=== PATIENT | female | born 1965 | race African-American/Black ===

== ENCOUNTER 2017-09-16 11:06 | Emergency (ER) | payer MEDICARE, MEDICAID ==
[~2017-09-16] VITALS: Ht 162.6 cm; Wt 73.5 kg
[~2017-09-16 11:06] MED LIST: AMLO5TAB4 PO; METR500T8 PO
--- NOTE | 2017-09-16 11:51 | PHYS DOC ---
Past Medical History Past Medical History: Other Additional Past Medical Histor: sciatica,COLITIS Past Surgical History: Appendectomy, Cholecystectomy, Hysterectomy, Tubal ligation Alcohol Use: Occasionally Drug Use: None Adult General Chief Complaint Chief Complaint: NAUSEA/VOMITING/DIARRHA HPI HPI Patient is a 52 year old female with history of colitis who presents today with nausea vomiting and diarrhea that began 2 days. Patient's also complaining of generalized abdominal pain. Patient denies any hematemesis or melena. Patient is actively vomiting on arrival to the ED. PCP none. She states she just moved here from [place]. Review of Systems Review of Systems Constitutional: Denies fever or chills [] Eyes: Denies change in visual acuity, redness, or eye pain [] HENT: Denies nasal congestion or sore throat [] Respiratory: Denies cough or shortness of breath [] Cardiovascular: No additional information not addressed in HPI [] GI: Generalized abdominal pain, nausea vomiting or diarrhea : Denies dysuria or hematuria [] Musculoskeletal: Denies back pain or joint pain [] Integument: Denies rash or skin lesions [] Neurologic: Denies headache, focal weakness or sensory changes [] All other systems were reviewed and found to be within normal limits, except as documented in this note. Current Medications Current Medications Current Medications Medications (Trade) Dose Ordered Sig/Parisa Start Time Stop Time Status Last Admin Dose Admin Hydromorphone HCl (Dilaudid) 1 mg 1X ONCE 09/16/17 12:00 09/16/17 12:01 DC 09/16/17 11:58 1 MG Iohexol (Omnipaque 300 Mg/ml) 75 ml 1X ONCE 09/16/17 13:15 09/16/17 13:16 DC 09/16/17 13:37 75 ML Promethazine HCl 12.5 mg/Sodium Chloride 50.5 ml @ 101 mls/hr 1X ONCE 09/16/17 12:00 09/16/17 12:29 DC 09/16/17 11:59 101 MLS/HR Sodium Chloride 1,000 ml @ 1,000 mls/hr 1X ONCE 09/16/17 12:00 09/16/17 12:59 DC 09/16/17 11:55 1,000 MLS/HR Allergies Allergies Allergies Coded Allergies Type Severity Reaction Last Updated Verified No Known Drug Allergies 08/29/14 No Physical Exam Physical Exam Constitutional: Well developed, well nourished, no acute distress, non-toxic appearance. [] HENT: Normocephalic, atraumatic, bilateral external ears normal, oropharynx moist, no oral exudates, nose normal. [] Eyes: PERRLA, EOMI, conjunctiva normal, no discharge. [] Neck: Normal range of motion, no tenderness, supple, no stridor. [] Cardiovascular:Heart rate regular rhythm, no murmur [] Lungs & Thorax: Bilateral breath sounds clear to auscultation [] Abdomen: Bowel sounds normal, soft, no tenderness, no masses, no pulsatile masses. [] Skin: Warm, dry, no erythema, no rash. [] Back: No tenderness, no CVA tenderness. [] Extremities: No tenderness, no cyanosis, no clubbing, ROM intact, no edema. [] Neurologic: Alert and oriented X 3, normal motor function, normal sensory function, no focal deficits noted. [] Psychologic: Affect normal, judgement normal, mood normal. [] Current Patient Data Vital Signs Vital Signs Date Time Temp Pulse Resp B/P (MAP) Pulse Ox O2 Delivery O2 Flow Rate FiO2 09/16/17 12:36 76 126/92 (103) 97 Room Air 09/16/17 11:31 98.4 22 98.4 Lab Values Laboratory Tests Test 09/16/17 11:50 09/16/17 12:55 White Blood Count 12.7 x10^3/uL (4.0-11.0) H Red Blood Count 4.83 x10^6/uL (3.50-5.40) Hemoglobin 15.8 g/dL (12.0-15.5) H Hematocrit 47.1 % (36.0-47.0) H Mean Corpuscular Volume 98 fL (79-100) Mean Corpuscular Hemoglobin 33 pg (25-35) Mean Corpuscular Hemoglobin Concent 34 g/dL (31-37) Red Cell Distribution Width 13.1 % (11.5-14.5) Platelet Count 350 x10^3/uL (140-400) Neutrophils (%) (Auto) 74 % (31-73) H Lymphocytes (%) (Auto) 18 % (24-48) L Monocytes (%) (Auto) 7 % (0-9) Eosinophils (%) (Auto) 0 % (0-3) Basophils (%) (Auto) 0 % (0-3) Neutrophils # (Auto) 9.5 x10^3uL (1.8-7.7) H Lymphocytes # (Auto) 2.3 x10^3/uL (1.0-4.8) Monocytes # (Auto) 0.9 x10^3/uL (0.0-1.1) Eosinophils # (Auto) 0.0 x10^3/uL (0.0-0.7) Basophils # (Auto) 0.0 x10^3/uL (0.0-0.2) Prothrombin Time 12.6 SEC (11.7-14.0) Prothrombin Time INR 1.0 (0.8-1.1) PTT 26 SEC (24-38) Sodium Level 142 mmol/L (136-145) Potassium Level 3.6 mmol/L (3.5-5.1) Chloride Level 101 mmol/L (98-107) Carbon Dioxide Level 26 mmol/L (21-32) Anion Gap 15 (6-14) H Blood Urea Nitrogen 11 mg/dL (7-20) Creatinine 1.0 mg/dL (0.6-1.0) Estimated GFR (Cockcroft-Gault) 70.5 BUN/Creatinine Ratio 11 (6-20) Glucose Level 150 mg/dL (70-99) H Calcium Level 9.4 mg/dL (8.5-10.1) Total Bilirubin 0.6 mg/dL (0.2-1.0) Aspartate Amino Transferase (AST) 22 U/L (15-37) Alanine Aminotransferase (ALT) 19 U/L (14-59) Alkaline Phosphatase 110 U/L (46-116) Total Protein 8.9 g/dL (6.4-8.2) H Albumin 4.7 g/dL (3.4-5.0) Albumin/Globulin Ratio 1.1 (1.0-1.7) Lipase 275 U/L (73-393) Ethyl Alcohol Level < 10 mg/dL (0-10) Urine Collection Type Unknown Urine Color Yellow Urine Clarity Hazy Urine pH 5.5 Urine Specific [place] 1.025 Urine Protein 30 mg/dL (NEG-TRACE) Urine Glucose (UA) Negative mg/dL (NEG) Urine Ketones (Stick) Trace mg/dL (NEG) Urine Blood Negative (NEG) Urine Nitrite Negative (NEG) Urine Bilirubin Small (NEG) Urine Urobilinogen Dipstick 0.2 mg/dL (0.2 mg/dL) Urine Leukocyte Esterase Negative (NEG) Urine RBC 0 /HPF (0-2) Urine WBC 1-4 /HPF (0-4) Urine Squamous Epithelial Cells Many /LPF Urine Bacteria Many /HPF (0-FEW) Urine Hyaline Casts Many /HPF Urine Mucus Marked /LPF Urine Opiates Screen Pos (NEG) Urine Methadone Screen Neg (NEG) Urine Barbiturates Neg (NEG) Urine Phencyclidine Screen Neg (NEG) Urine Amphetamine/Methamphetamine Neg (NEG) Urine Benzodiazepines Screen Neg (NEG) Urine Cocaine Screen Pos (NEG) Urine Cannabinoids Screen Pos (NEG) Urine Ethyl Alcohol Neg (NEG) Laboratory Tests 09/16/17 11:50 Laboratory Tests 09/16/17 11:50 EKG EKG [] Radiology/Procedures Radiology/Procedures []PROCEDURE: CT ABD PELV W/ IV CONTRST ONLY CT abdomen and pelvis with contrast 09/16/2017 Clinical indication: Nausea, vomiting and diarrhea. History of colitis. Technique: Multiple CT images of the abdomen and pelvis were obtained following the intravenous and ministration of 75 mL Omnipaque 300. PQRS Compliance Statement: One or more of the following individualized dose reduction techniques were utilized for this examination: 1. Automated exposure control 2. Adjustment of the mA and/or kV according to patient size 3. Use of iterative reconstruction technique Findings: Heart size is normal. Visualized lung bases are clear. Liver, adrenal glands, spleen, pancreas, and kidneys are unremarkable. Abdominal aorta is normal in caliber with mild aortoiliac calcified atheromatous disease. No retroperitoneal or mesenteric lymphadenopathy. No abdominal free fluid. The small and large bowel loops are normal in caliber without obstruction. There is possible circumferential thickening of the sigmoid colon, though not well distended. Prior cholecystectomy. Prior appendectomy. No abdominal free fluid. No pneumoperitoneum. Urinary bladder is decompressed. Prior hysterectomy. There is a small fat-containing periumbilical hernia. There are no destructive osseous lesions. Impression: Possible mild circumferential thickening of the sigmoid colon, however limited due to lack of oral contrast. Findings may be pseudothickening from incomplete distention, though nonspecific infectious, inflammatory or ischemic colitis could produce a similar appearance. DICTATED and SIGNED BY: JOSE ANTONIO OTERO MD DATE: 09/16/17 1402 CC: NITA ADAMS APRN; NO PCP ~ Course & Med Decision Making Course & Med Decision Making Pertinent Labs and Imaging studies reviewed. (See chart for details) This is a 52-year-old female patient in the ED for nausea vomiting and diarrhea for 2 days. She has history of colitis. Blood pressure was 223/133 on arrival to the ED with a heart rate of 90. Patient states she does not have history of hypertension but any time she has severe pain like she does right now her blood pressure goes way up. CBC with a WBC of 12.7, CMP would not acute findings, CT of the abdomen and pelvic was noted for colitis. Patient was discharged with Flagyl and Cipro. She was ready has pain medicines at home. She was discharged with promethazine for nausea vomiting and follow-up with her PCP in 1-2 weeks. Her blood pressure came down to 126/92. She states she is feeling better. Dragon Disclaimer Dragon Disclaimer This electronic medical record was generated, in whole or in part, using a voice recognition dictation system. Departure Departure Impression: Primary Impression: Acute colitis Disposition: 01 HOME, SELF-CARE Condition: STABLE Referrals: NO PCP (PCP) SKYLA RASMUSSEN MD follow up in 1-3 days Patient Instructions: Colitis Additional Instructions: You were seen for colitis. Please push fluids. Take the prescribed antibiotics as ordered. Maintain good hand hygiene. Follow-up with your doctor for next 1-3 days. Come back to the ED at any point symptoms worsen. Scripts Metronidazole (FLAGYL) 500 Mg Tablet 500 MG PO TID, #30 TAB Prov: NITA ADAMS APRN 09/16/17 Ciprofloxacin Hcl (CIPRO) 500 Mg Tablet 1 TAB PO BID, #20 TAB Prov: NITA ADAMS APRN 09/16/17 Ondansetron (ZOFRAN ODT) 4 Mg Tab.rapdis 1 TAB SL Q8HRS, #15 TAB Prov: NITA ADAMS APRN 09/16/17 Promethazine Hcl (PROMETHAZINE HCL) 25 Mg Tablet 1 TAB PO PRN Q6HRS, #10 TAB Prov: NITA ADAMS APRN 09/16/17 NITA ADAMS APRN Sep 16, 2017 11:51
[2017-09-16] MEDS ORDERED: IV NORMAL SALINE 1000ML BAG 1,000 ML IV ONE (12:00)
[2017-09-16] MEDS ORDERED: PROMETHAZINE 12.5 MG in IV NORMAL SALINE 50ML 50 ML IV ONE (12:00)
[2017-09-16] MEDS ORDERED: HYDROmorphone 2 MG/ML VIAL IV ONE (12:00)
[2017-09-16 12:06] LABS: BASO % 0 % (0-3); EOS % 0 % (0-3); HEMATOCRIT 47.1 % (36.0-47.0); HEMOGLOBIN 15.8 g/dL (12.0-15.5); LYMPH # 2.3 x10^3/uL (1.0-4.8); LYMPH % 18 % (24-48); MEAN CORPUSCULAR HEMOGLOBIN 33 pg (25-35); MEAN CORPUSCULAR HGB CONC 34 g/dL (31-37); MEAN CORPUSCULAR VOLUME 98 fL (79-100); MONO % 7 % (0-9); NEUT % 74 % (31-73); PLATELET COUNT 350 x10^3/uL (140-400); RED BLOOD COUNT 4.83 x10^6/uL (3.50-5.40); RED CELL DISTRIBUTION WIDTH 13.1 % (11.5-14.5); WHITE BLOOD COUNT 12.7 x10^3/uL (4.0-11.0)
[2017-09-16 12:14] LABS: PROTHROMBIN TIME PATIENT 12.6 SEC (11.7-14.0)
[2017-09-16 12:20] LABS: CALCIUM 9.4 mg/dL (8.5-10.1); GFR 70.5; POTASSIUM 3.6 mmol/L (3.5-5.1)
[2017-09-16 12:25] LABS: ALBUMIN 4.7 g/dL (3.4-5.0); ALBUMIN/GLOBULIN RATIO 1.1 (1.0-1.7); TOTAL BILIRUBIN 0.6 mg/dL (0.2-1.0); TOTAL PROTEIN 8.9 g/dL (6.4-8.2)
[2017-09-16 12:36] VITALS: BP 126/92
[2017-09-16 13:09] LABS: BILIRUBIN,URINE SMALL (NEG); GLUCOSE,URINE NEGATIVE (NEG); NITRITE,URINE NEGATIVE (NEG); PH,URINE 5.5; PROTEIN,URINE 30 mg/dL (NEG-TRACE); UROBILINOGEN,URINE 0.2 mg/dL (0.2 mg/dL)
[2017-09-16 13:13] LABS: BARBITURATES NEG (NEG); BENZODIAZEPINES NEG (NEG); CANNABINOIDS POS (NEG); COCAINE POS (NEG); METHADONE NEG (NEG); OPIATES POS (NEG); PHENCYCLIDINE NEG (NEG)
[2017-09-16] MEDS ORDERED: IOHEXOL 300 MG/ML 100ML VIAL. IV ONE (13:15)
[2017-09-16 13:16] LABS: SQUAMOUS EPITHELIAL CELL,UR MANY /LPF
[2017-09-16 13:17] LABS: BACTERIA,URINE MANY /HPF (0-FEW)
[2017-09-16 13:18] LABS: RBC,URINE 0 /HPF (0-2)
--- NOTE | 2017-09-16 14:11 | RAD ---
CT abdomen and pelvis with contrast 09/16/2017 Clinical indication: Nausea, vomiting and diarrhea. History of colitis. Technique: Multiple CT images of the abdomen and pelvis were obtained following the intravenous and ministration of 75 mL Omnipaque 300. PQRS Compliance Statement: One or more of the following individualized dose reduction techniques were utilized for this examination: 1. Automated exposure control 2. Adjustment of the mA and/or kV according to patient size 3. Use of iterative reconstruction technique Findings: Heart size is normal. Visualized lung bases are clear. Liver, adrenal glands, spleen, pancreas, and kidneys are unremarkable. Abdominal aorta is normal in caliber with mild aortoiliac calcified atheromatous disease. No retroperitoneal or mesenteric lymphadenopathy. No abdominal free fluid. The small and large bowel loops are normal in caliber without obstruction. There is possible circumferential thickening of the sigmoid colon, though not well distended. Prior cholecystectomy. Prior appendectomy. No abdominal free fluid. No pneumoperitoneum. Urinary bladder is decompressed. Prior hysterectomy. There is a small fat-containing periumbilical hernia. There are no destructive osseous lesions. Impression: Possible mild circumferential thickening of the sigmoid colon, however limited due to lack of oral contrast. Findings may be pseudothickening from incomplete distention, though nonspecific infectious, inflammatory or ischemic colitis could produce a similar appearance.
[2017-09-16] MEDS ORDERED: ONDA4TAB10 SL (15:07)
[2017-09-16] MEDS ORDERED: CIPR500T94 PO (15:07)
[2017-09-16] MEDS ORDERED: METR500T PO (15:07)
[2017-09-16] MEDS ORDERED: PROM25TA10 PO (15:07)
== END 2017-09-16 15:17 | disposition home or self-care (01) ==
LOC: ER 11:06
DX: K52.9 Noninfective gastroenteritis and colitis, unspecified (principal); Z98.51 Tubal ligation status; Z90.49 Acquired absence of other specified parts of digestive tract; Z90.710 Acquired absence of both cervix and uterus
CPT/HCPCS: 36415; 74177; 80053; 80307; 81001; 83690; 85025; 85610; 85730; 87045; 87086; 96365; 96375; 99285; G0480; J1170; J2550; J7030; Q9967; G0479

== ENCOUNTER 2017-11-08 22:34 | Emergency (ER) | payer MEDICARE, MEDICAID ==
[2017-11-08 23:07] LABS: ADD MAN DIFF? NO
[2017-11-08 23:10] LABS: BASO % 0 % (0-3); EOS # 0.1 x10^3/uL (0.0-0.7); EOS % 1 % (0-3); HEMATOCRIT 39.9 % (36.0-47.0); HEMOGLOBIN 13.8 g/dL (12.0-15.5); LYMPH # 3.8 x10^3/uL (1.0-4.8); LYMPH % 34 % (24-48); MEAN CORPUSCULAR HEMOGLOBIN 32 pg (25-35); MEAN CORPUSCULAR HGB CONC 35 g/dL (31-37); MEAN CORPUSCULAR VOLUME 93 fL (79-100); MONO # 0.6 x10^3/uL (0.0-1.1); MONO % 5 % (0-9); NEUT # 6.5 x10^3uL (1.8-7.7); NEUT % 59 % (31-73); PLATELET COUNT 320 x10^3/uL (140-400); RED BLOOD COUNT 4.29 x10^6/uL (3.50-5.40); RED CELL DISTRIBUTION WIDTH 12.9 % (11.5-14.5)
[2017-11-08 23:12] LABS: BILIRUBIN,URINE NEGATIVE (NEG); CLARITY,URINE CLEAR; COLOR,URINE YELLOW; GLUCOSE,URINE NEGATIVE (NEG); NITRITE,URINE NEGATIVE (NEG); PH,URINE 5.5; PROTEIN,URINE NEGATIVE (NEG-TRACE); UROBILINOGEN,URINE 0.2 mg/dL (0.2 mg/dL)
[2017-11-08 23:16] LABS: ANION GAP 12 (6-14); BLOOD UREA NITROGEN 14 mg/dL (7-20); BUN/CREATININE RATIO 18 (6-20); CALCIUM 8.9 mg/dL (8.5-10.1); CARBON DIOXIDE 26 mmol/L (21-32); CHLORIDE 101 mmol/L (98-107); CREATININE 0.8 mg/dL (0.6-1.0); GFR 91.1; GLUCOSE 73 mg/dL (70-99); POTASSIUM 3.7 mmol/L (3.5-5.1); SODIUM 139 mmol/L (136-145)
[2017-11-08 23:18] LABS: BACTERIA,URINE FEW /HPF (0-FEW); RBC,URINE 0 /HPF (0-2); SQUAMOUS EPITHELIAL CELL,UR MOD /LPF; WBC,URINE OCC /HPF (0-4)
[2017-11-08 23:25] LABS: ALBUMIN 4.2 g/dL (3.4-5.0); ALBUMIN/GLOBULIN RATIO 1.2 (1.0-1.7); ALK PHOS 79 U/L (46-116); ALT (SGPT) 20 U/L (14-59); AST (SGOT) 23 U/L (15-37); LIPASE 405 U/L (73-393); TOTAL BILIRUBIN 0.2 mg/dL (0.2-1.0); TOTAL PROTEIN 7.7 g/dL (6.4-8.2)
[2017-11-08] MEDS: ONDANSETRON PF 4 MG/2 ML VIAL. IV ×2 (23:30)
[2017-11-08] MEDS: IV NORMAL SALINE 1000ML BAG 1,000 ML IV ×2 (23:30)
[2017-11-08] MEDS: KETOROLAC 30 MG/ML INJ. IV ×2 (23:31)
[2017-11-08] MEDS: IOHEXOL 300 MG/ML 100ML VIAL. IV ×2 (23:54)
[2017-11-09] MEDS ORDERED: CONTRAST GIVEN MC ×2
== END 2017-11-09 00:35 | disposition left against medical advice (07) ==
LOC: ER 11-09 00:35
DX: K52.9 Noninfective gastroenteritis and colitis, unspecified (principal); M54.30 Sciatica, unspecified side; Z90.49 Acquired absence of other specified parts of digestive tract; Z90.710 Acquired absence of both cervix and uterus; Z98.51 Tubal ligation status
CPT/HCPCS: 36415; 74177; 80053; 81001; 83690; 85025; 96361; 96374; 96375; 99285-25; J1885; J2405; J7030; Q9967

== ENCOUNTER 2017-11-25 09:28 | Inpatient (IN) | payer MEDICARE ==
[2017-11-25 10:27] LABS: ADD MAN DIFF? NO
[2017-11-25 10:34] LABS: BASO # 0.1 x10^3/uL (0.0-0.2); BASO % 1 % (0-3); EOS % 0 % (0-3); HEMATOCRIT 45.2 % (36.0-47.0); HEMOGLOBIN 15.3 g/dL (12.0-15.5); LYMPH # 2.5 x10^3/uL (1.0-4.8); LYMPH % 18 % (24-48); MEAN CORPUSCULAR HEMOGLOBIN 32 pg (25-35); MEAN CORPUSCULAR HGB CONC 34 g/dL (31-37); MEAN CORPUSCULAR VOLUME 94 fL (79-100); MONO # 0.3 x10^3/uL (0.0-1.1); MONO % 3 % (0-9); NEUT # 10.9 x10^3uL (1.8-7.7); NEUT % 79 % (31-73); PLATELET COUNT 401 x10^3/uL (140-400); RED BLOOD COUNT 4.79 x10^6/uL (3.50-5.40); RED CELL DISTRIBUTION WIDTH 14.2 % (11.5-14.5); WHITE BLOOD COUNT 13.9 x10^3/uL (4.0-11.0)
[2017-11-25 10:41] LABS: ANION GAP 20 (6-14); BLOOD UREA NITROGEN 9 mg/dL (7-20); BUN/CREATININE RATIO 9 (6-20); CALCIUM 9.7 mg/dL (8.5-10.1); CARBON DIOXIDE 20 mmol/L (21-32); CHLORIDE 103 mmol/L (98-107); GFR 70.5; GLUCOSE 120 mg/dL (70-99); POTASSIUM 3.6 mmol/L (3.5-5.1); SODIUM 143 mmol/L (136-145)
[2017-11-25 10:47] LABS: ALBUMIN 4.4 g/dL (3.4-5.0); ALK PHOS 106 U/L (46-116); ALT (SGPT) 27 U/L (14-59); AST (SGOT) 44 U/L (15-37); LIPASE 176 U/L (73-393); TOTAL BILIRUBIN 0.3 mg/dL (0.2-1.0); TOTAL PROTEIN 8.7 g/dL (6.4-8.2)
[2017-11-25 10:50] LABS: TROPONINI < 0.017 ng/mL (0.000-0.055)
[2017-11-25] MEDS: IV NORMAL SALINE 1000ML BAG 1,000 ML IV ×2 (10:58→17:58)
[2017-11-25] MEDS: ONDANSETRON PF 4 MG/2 ML VIAL. IV ×4 (11:00→18:17)
[2017-11-25] MEDS: fentaNYL PF VIAL 100 MCG/2 ML VIAL IV (11:02)
[2017-11-25] MEDS: FAMOTIDINE 20 MG/2 ML VIAL IVP (11:03)
[2017-11-25] MEDS: MORPHINE SULFATE 4 MG/ML DISP.SYRIN. IV ×4 (13:15→20:56)
[2017-11-25] MEDS ORDERED: CONTRAST GIVEN MC (14:00)
[2017-11-25] MEDS: IOHEXOL 300 MG/ML 100ML VIAL. IV (15:09)
[2017-11-25 16:22] LABS: LACTIC ACID 3.4 mmol/L (0.4-2.0)
[2017-11-25] MEDS ORDERED: MORPHINE SULFATE 2 MG/ML DISP.SYRIN. IV (17:15)
[2017-11-25] MEDS: CIPROFLOXACIN 400MG PREMIX 200 ML IV (17:18)
[2017-11-25] MEDS: ENALAPRILAT 2.5 MG/2 ML VIAL. IV ×2 (18:18→20:56)
[2017-11-26] MEDS: IV NORMAL SALINE 1000ML BAG 1,000 ML IV ×2 (05:36→16:03)
[2017-11-26] MEDS: MORPHINE SULFATE 4 MG/ML DISP.SYRIN. IV ×4 (05:37→22:25)
[2017-11-26 07:17] LABS: ADD MAN DIFF? NO
[2017-11-26 07:20] LABS: BASO # 0.1 x10^3/uL (0.0-0.2); BASO % 1 % (0-3); EOS % 0 % (0-3); HEMATOCRIT 42.9 % (36.0-47.0); HEMOGLOBIN 14.4 g/dL (12.0-15.5); LYMPH # 2.4 x10^3/uL (1.0-4.8); LYMPH % 16 % (24-48); MEAN CORPUSCULAR HEMOGLOBIN 32 pg (25-35); MEAN CORPUSCULAR HGB CONC 34 g/dL (31-37); MEAN CORPUSCULAR VOLUME 95 fL (79-100); MONO # 1.3 x10^3/uL (0.0-1.1); MONO % 9 % (0-9); NEUT # 11.1 x10^3uL (1.8-7.7); NEUT % 75 % (31-73); PLATELET COUNT 360 x10^3/uL (140-400); RED BLOOD COUNT 4.53 x10^6/uL (3.50-5.40); RED CELL DISTRIBUTION WIDTH 14.1 % (11.5-14.5); WHITE BLOOD COUNT 14.9 x10^3/uL (4.0-11.0)
[2017-11-26 07:42] LABS: ANION GAP 9 (6-14); BLOOD UREA NITROGEN 11 mg/dL (7-20); CALCIUM 8.7 mg/dL (8.5-10.1); CARBON DIOXIDE 27 mmol/L (21-32); CHLORIDE 104 mmol/L (98-107); GFR 70.5; GLUCOSE 95 mg/dL (70-99); POTASSIUM 4.5 mmol/L (3.5-5.1); SODIUM 140 mmol/L (136-145)
[2017-11-26 09:43] LABS: LACTIC ACID 1.6 mmol/L (0.4-2.0)
[2017-11-26] MEDS: metroNIDAZOLE 250 MG TABLET PO ×2 (12:44→20:52)
[2017-11-26] MEDS: FAMOTIDINE 20 MG TABLET. PO ×2 (12:44→20:52)
[2017-11-26 13:45] LABS: BARBITURATES NEG (NEG); BENZODIAZEPINES NEG (NEG); CANNABINOIDS POS (NEG); COCAINE POS (NEG); METHADONE NEG (NEG); OPIATES POS (NEG); PHENCYCLIDINE NEG (NEG)
[2017-11-26 13:47] LABS: AMPHETAMINE/METHAMPHETAMINE NEG (NEG); ETHANOL, URINE NEG (NEG)
[2017-11-26] MEDS: ENOXAPARIN 40 MG/0.4 ML SYRINGE. SQ (16:00)
[2017-11-26] MEDS: LACTOBACILLUS RHAMNOSUS GG 1 CAPSULE. PO (20:51)
[2017-11-27 03:59] LABS: ADD MAN DIFF? NO
[2017-11-27 04:01] LABS: BASO # 0.1 x10^3/uL (0.0-0.2); BASO % 1 % (0-3); EOS # 0.1 x10^3/uL (0.0-0.7); EOS % 1 % (0-3); HEMATOCRIT 40.5 % (36.0-47.0); LYMPH # 3.7 x10^3/uL (1.0-4.8); LYMPH % 42 % (24-48); MEAN CORPUSCULAR HEMOGLOBIN 33 pg (25-35); MEAN CORPUSCULAR HGB CONC 35 g/dL (31-37); MEAN CORPUSCULAR VOLUME 94 fL (79-100); MONO # 0.7 x10^3/uL (0.0-1.1); MONO % 8 % (0-9); NEUT # 4.4 x10^3uL (1.8-7.7); NEUT % 49 % (31-73); PLATELET COUNT 301 x10^3/uL (140-400); WHITE BLOOD COUNT 8.9 x10^3/uL (4.0-11.0)
[2017-11-27 04:19] LABS: ANION GAP 8 (6-14); BLOOD UREA NITROGEN 8 mg/dL (7-20); CALCIUM 9.1 mg/dL (8.5-10.1); CARBON DIOXIDE 24 mmol/L (21-32); CHLORIDE 107 mmol/L (98-107); GFR 70.5; GLUCOSE 98 mg/dL (70-99); POTASSIUM 3.3 mmol/L (3.5-5.1); SODIUM 139 mmol/L (136-145)
[2017-11-27] MEDS: metroNIDAZOLE 250 MG TABLET PO ×2 (05:40→14:00)
[2017-11-27] MEDS: BARIUM SULFATE 340 GM SUSPENSION. PO (08:35)
[2017-11-27] MEDS: SIMETHICONE/SOD BICARB/CITRIC ACID PACKET. PO (08:35)
[2017-11-27] MEDS: BARIUM SULFATE 60% 355 ML SUSP PO (08:35)
[2017-11-27] MEDS: FAMOTIDINE 20 MG TABLET. PO (11:28)
[2017-11-27] MEDS: LACTOBACILLUS RHAMNOSUS GG 1 CAPSULE. PO (11:28)
[2017-11-27] MEDS: MORPHINE SULFATE 4 MG/ML DISP.SYRIN. IV ×2 (11:32→15:37)
[2017-11-27] MEDS ORDERED: INFLUENZA VAX SCREEN BY RX. MC (14:00)
[2017-11-27] MEDS: FLU VACC QS2017-18 (36MOS+)/PF 0.5 ML SYRINGE. VAX IM (15:22)
[2017-11-27] MEDS: ONDANSETRON PF 4 MG/2 ML VIAL. IV (15:31)
[2017-11-28 09:22] LABS: C DIFF BY PCR Positive (Negative)
== END 2017-11-27 16:10 | disposition home or self-care (01) | DRG 872 ==
LOC: ER 09:28 → 6 SOUTH 16:31
DX: A41.9 Sepsis, unspecified organism (principal); E87.2 Acidosis; A09 Infectious gastroenteritis and colitis, unspecified; B19.20 Unspecified viral hepatitis C without hepatic coma; Z90.710 Acquired absence of both cervix and uterus; F17.210 Nicotine dependence, cigarettes, uncomplicated; F32.9 Major depressive disorder, single episode, unspecified; F41.9 Anxiety disorder, unspecified; K29.70 Gastritis, unspecified, without bleeding; F12.90 Cannabis use, unspecified, uncomplicated; K63.5 Polyp of colon; Z83.3 Family history of diabetes mellitus; Z90.49 Acquired absence of other specified parts of digestive tract; Z98.51 Tubal ligation status
CPT/HCPCS: 36415; 74177; 74249; 80048; 80053; 80307; 83605; 83690; 84484; 85025; 87324; 90686; 93005; 96361; 96374; 96375; 96376; 99285; 99285-25; J0744; J1650; J2270; J2405; J3010; J3490; J7030; Q9967; S0028

== ENCOUNTER → 2018-01-22 | Day surgery (SDC) | payer MEDICARE, OTHER ==
[~2018-01-22] MED LIST changes: -AMLO5TAB4 PO; +LIDOCAINE 1% PF 2 ML VIAL. ID; +LIDOCAINE 2% PF Vial for OR 5 ML VIAL.; -METR500T8 PO; +MORPHINE SULFATE 4 MG/ML DISP.SYRIN. IV; +ONDANSETRON PF 4 MG/2 ML VIAL. IV; +PROCHLORPERAZINE 10 MG/2 ML VIAL. IV; +PROPOFOL 20 ML IV; +fentaNYL PF VIAL 100 MCG/2 ML VIAL IV
[2018-01-22] MEDS: IV RINGERS,LACTATED 1000ML 1,000 ML IV (07:00)
== END | disposition home or self-care (01) ==
LOC: ENDOS 15:19
DX: K29.50 Unspecified chronic gastritis without bleeding (principal)
CPT/HCPCS: 43235; J2704

== ENCOUNTER 2018-05-24 21:00 | Emergency (ER) | payer MEDICARE, OTHER ==
[~2018-05-24] VITALS: Ht 162.6 cm; Wt 77.1 kg
[2018-05-24 21:00] VITALS: BP 128/85
[~2018-05-24 21:00] MED LIST changes: +AMLO5TAB4 PO; +CIPR500T94 PO; -LIDOCAINE 1% PF 2 ML VIAL. ID; -LIDOCAINE 2% PF Vial for OR 5 ML VIAL.; +METR500T PO; +METR500T8 PO; -MORPHINE SULFATE 4 MG/ML DISP.SYRIN. IV; +ONDA4TAB10 SL; -ONDANSETRON PF 4 MG/2 ML VIAL. IV; -PROCHLORPERAZINE 10 MG/2 ML VIAL. IV; +PROM25TA10 PO; -PROPOFOL 20 ML IV; -fentaNYL PF VIAL 100 MCG/2 ML VIAL IV
--- NOTE | 2018-05-24 21:59 | PHYS DOC ---
Past Medical History Past Medical History: Other Additional Past Medical Histor: colitis Past Surgical History: Appendectomy, Cholecystectomy, Hysterectomy, Tubal ligation Alcohol Use: Occasionally Drug Use: Marijuana Adult General Chief Complaint Chief Complaint: LOWER EXT PAIN HPI HPI Patient is a 52 year old female with no significant medical history who presents today complaining of a knot on the left lateral knee that she noted today. Patient states this note is painful. Denies any known injury. Review of Systems Review of Systems Constitutional: Denies fever or chills [] Eyes: Denies change in visual acuity, redness, or eye pain [] HENT: Denies nasal congestion or sore throat [] Respiratory: Denies cough or shortness of breath [] Cardiovascular: No additional information not addressed in HPI [] GI: Denies abdominal pain, nausea, vomiting, bloody stools or diarrhea [] : Denies dysuria or hematuria [] Musculoskeletal:Reports knot on the left lateral knee Denies back pain or joint pain [] Integument: Denies rash or skin lesions [] Neurologic: Denies headache, focal weakness or sensory changes [] All other systems were reviewed and found to be within normal limits, except as documented in this note. Allergies Allergies Allergies Coded Allergies Type Severity Reaction Last Updated Verified No Known Drug Allergies 08/29/14 No Physical Exam Physical Exam Constitutional: Well developed, well nourished, no acute distress, non-toxic appearance. [] HENT: Normocephalic, atraumatic, bilateral external ears normal, oropharynx moist, no oral exudates, nose normal. [] Eyes: PERRLA, EOMI, conjunctiva normal, no discharge. [] Neck: Normal range of motion, no tenderness, supple, no stridor. [] Cardiovascular:Heart rate regular rhythm, no murmur [] Lungs & Thorax: Bilateral breath sounds clear to auscultation [] Abdomen: Bowel sounds normal, soft, no tenderness, no masses, no pulsatile masses. [] Skin: Warm, dry, no erythema, no rash. [] Back: No tenderness, no CVA tenderness. [] Extremities: Left lateral knee with a knot approximately 1 x 1 centimeters with no erythema, slight tenderness over the area, multiple varicose veins noted to bilateral lower extremities no cyanosis, no clubbing, ROM intact, no edema. Negative bilateral Homans sign. +2 bilateral pedal pulses. Neurologic: Alert and oriented X 3, normal motor function, normal sensory function, no focal deficits noted. [] Psychologic: Affect normal, judgement normal, mood normal. [] Current Patient Data Vital Signs Vital Signs Date Time Temp Pulse Resp B/P (MAP) Pulse Ox O2 Delivery O2 Flow Rate FiO2 05/24/18 21:00 98.5 84 16 128/85 (99) 98 Room Air 98.5 EKG EKG [] Radiology/Procedures Radiology/Procedures [] Course & Med Decision Making Course & Med Decision Making Pertinent Labs and Imaging studies reviewed. (See chart for details) This is a 52-year-old female patient presenting to the ED today with complaints of a knot on her left lateral knee that she noted today. Left knee x-rays interpreted by radiologist are negative for any acute findings. Venous Doppler to the left lower extremity is negative for any acute findings-noted for varicose veins. Patient was discharged on aspirin as needed for pain. Recommended mickey horse. Follow-up with PCP next week. Dragon Disclaimer Dragon Disclaimer This electronic medical record was generated, in whole or in part, using a voice recognition dictation system. Departure Departure Impression: Primary Impression: Varicose veins of lower extremity Disposition: HOME, SELF-CARE Condition: STABLE Referrals: NO PCP (PCP) Follow-up with your own doctor in 1-2 weeks Patient Instructions: Varicose Veins Additional Instructions: You were evaluated in the emergency room and noted to have varicose veins. We highly recommend you wear mickey horse. Take aspirin as needed for pain. Prescription was given to you. Follow-up with your doctor next week. Scripts Aspirin (ASPIRIN) 325 Mg Tablet 1 TAB PO BID PRN for PAIN, #30 TAB 0 Refills Prov: NITA ADAMS YOSHI 05/24/18 Problem Qualifiers Primary Impression: Varicose veins of lower extremity Varicose vein complication: unspecified Laterality: bilateral Qualified Codes: I83.93 - Asymptomatic varicose veins of bilateral lower extremities ANGIENITA YOSHI May 24, 2018 21:59
--- NOTE | 2018-05-24 22:36 | RAD ---
Indication:swelling and pain on lateral epicondyle TECHNIQUE: 4 views of the left knee COMPARISON:None FINDINGS: No acute fracture or dislocation. No joint effusion. No joint space narrowing or productive changes. IMPRESSION: No acute findings. Electronically signed by: Brian Brantley DO (05/24/2018 10:33 PM) [facility]
[2018-05-24] MEDS ORDERED: ASPI325T8 PO (22:53)
--- NOTE | 2018-05-24 23:02 | RAD ---
Ultrasound venous Doppler INDICATION:Painful lump lateral knee. TECHNIQUE: Grayscale, color Doppler and spectral waveform ultrasound images of the left lower extremity deep veins obtained. COMPARISON: None FINDINGS: The interrogated deep veins are compressible and demonstrate evidence of blood flow with normal respiratory variation and response to augmentation. In the left lateral in the area of palpable abnormality there is no solid or cystic lesion. Diffuse edema is seen in this region. IMPRESSION: 1. No sonographic evidence of acute DVT of the left lower extremity deep veins. 2. No solid or cystic lesion seen in the region of palpable abnormality. Electronically signed by: Brian Brantley DO (05/24/2018 10:59 PM) [facility]
== END 2018-05-24 23:14 | disposition home or self-care (01) ==
LOC: ER 21:00
DX: I83.93 Asymptomatic varicose veins of bilateral lower extremities (principal)
CPT/HCPCS: 73564; 93971; 99284-25

== ENCOUNTER 2018-06-03 17:27 | Inpatient (IN) | payer OTHER ==
[~2018-06-03] VITALS: Ht 165.1 cm; Wt 66.3 kg
[~2018-06-03 17:27] MED LIST changes: +ASPI325T8 PO
[2018-06-03] MEDS ORDERED: IV NORMAL SALINE 1000ML BAG 1,000 ML IV ONE (17:45)
[2018-06-03 18:05] LABS: BASO % 0 % (0-3); EOS # 0.1 x10^3/uL (0.0-0.7); EOS % 1 % (0-3); HEMATOCRIT 42.3 % (36.0-47.0); HEMOGLOBIN 14.8 g/dL (12.0-15.5); LYMPH # 3.3 x10^3/uL (1.0-4.8); LYMPH % 37 % (24-48); MEAN CORPUSCULAR HEMOGLOBIN 33 pg (25-35); MEAN CORPUSCULAR HGB CONC 35 g/dL (31-37); MEAN CORPUSCULAR VOLUME 95 fL (79-100); MONO # 0.7 x10^3/uL (0.0-1.1); MONO % 8 % (0-9); NEUT # 4.9 x10^3uL (1.8-7.7); NEUT % 54 % (31-73); PLATELET COUNT 287 x10^3/uL (140-400); RED BLOOD COUNT 4.45 x10^6/uL (3.50-5.40); RED CELL DISTRIBUTION WIDTH 14.4 % (11.5-14.5); WHITE BLOOD COUNT 9.1 x10^3/uL (4.0-11.0)
[2018-06-03 18:13] LABS: PROTHROMBIN TIME PATIENT 13.3 SEC (11.7-14.0)
[2018-06-03 18:17] LABS: CALCIUM 9.5 mg/dL (8.5-10.1); GFR 70.5
[2018-06-03 18:23] LABS: ALBUMIN 4.7 g/dL (3.4-5.0); ALBUMIN/GLOBULIN RATIO 1.4 (1.0-1.7); MAGNESIUM 2.1 mg/dL (1.8-2.4); TOTAL BILIRUBIN 0.8 mg/dL (0.2-1.0)
[2018-06-03] MEDS ORDERED: POTASSIUM CHLORIDE 20 MEQ TABLET.ER. PO ONE (18:45)
[2018-06-03] MEDS ORDERED: IV NORMAL SALINE 500ML BAG 500 ML IV ONE (19:15)
[2018-06-03] MEDS ORDERED: ONDANSETRON PF 4 MG/2 ML VIAL. IV ONE (19:15)
--- NOTE | 2018-06-03 19:48 | PHYS DOC ---
Past Medical History Past Medical History: Other Additional Past Medical Histor: colitis, borderline HTN Past Surgical History: Appendectomy, Cholecystectomy, Hysterectomy, Tubal ligation Alcohol Use: Heavy Drug Use: Cocaine, Marijuana Adult General Chief Complaint Chief Complaint: NAUSEA/VOMITING/DIARRHA HPI HPI 52-year-old female presents to ER via EMS for complaints of upper abd pain radiating into center of back with N/V/D. Pt reports she had similar sxs yesterday and was evaluated at her house by EMS and tx'd with zofran and sxs improved. 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 Pt reports she had 1 episode of vomiting and multiple episodes of diarrhea. EMS reported BS 88 and they had started IV and gave her Zofran. Pt denies CP/palpitations or SOA. Pt denies swelling in extremities. Pt denies anxiety/depression/SI. She reports yesterday she did Cocaine and has drank alcohol and smoked marijuana today. Review of Systems Review of Systems Constitutional: Denies fever or chills [] Eyes: Denies change in visual acuity, redness, or eye pain [] HENT: Denies nasal congestion or sore throat [] Respiratory: Denies cough or shortness of breath [] Cardiovascular: No additional information not addressed in HPI [] GI: Denies bloody stools. Reports upper epig. abd pain radiating into mid back. Reports N/V/D. : Denies dysuria or hematuria. Denies incontinence Musculoskeletal: Denies joint pain [] Integument: Denies swelling, rash or skin lesions [] Neurologic: Denies headache, focal weakness or sensory changes. Denies dizziness All other systems were reviewed and found to be within normal limits, except as documented in this note. Current Medications Current Medications Current Medications Medications (Trade) Dose Ordered Sig/Parisa Start Time Stop Time Status Last Admin Dose Admin Labetalol HCl (Normodyne Iv Push) 20 mg 1X ONCE 06/03/18 20:00 06/03/18 20:01 DC 06/03/18 20:15 20 MG Lorazepam (Ativan) 1 mg 1X ONCE 06/03/18 17:45 06/03/18 17:54 DC 06/03/18 18:28 1 MG Ondansetron HCl (Zofran) 4 mg 1X ONCE 06/03/18 19:15 06/03/18 19:16 DC 06/03/18 19:25 4 MG Potassium Chloride (Klor-Con) 40 meq 1X ONCE 06/03/18 18:45 06/03/18 18:46 DC Sodium Chloride 500 ml @ 500 mls/hr 1X ONCE 06/03/18 19:15 06/03/18 20:14 DC 06/03/18 19:25 500 MLS/HR Allergies Allergies Allergies Coded Allergies Type Severity Reaction Last Updated Verified No Known Drug Allergies 08/29/14 No Physical Exam Physical Exam Constitutional: Well developed, well nourished, no acute distress, non-toxic appearance. [] HENT: Normocephalic, atraumatic, bilateral ears normal, mucous membranes pink/ dry, no oral exudates, nose normal. [] Eyes: PERRLA, no nystagmus, conjunctiva normal, no discharge. [] Neck: Normal range of motion, no tenderness, supple, no stridor. [] Cardiovascular: Tachycardic heart rate/rhythm, no murmur [] Lungs & Thorax: Bilateral breath sounds clear to auscultation. Resp. equal/ nonlabored Abdomen: Bowel sounds normal, soft/nondistended, mild diffuse upper abd/mid epig. tenderness- no focal area, no masses, no pulsatile masses. [] Skin: Warm, dry, no erythema, no rash. [] Back: No tenderness, no CVA tenderness. [] Extremities: No tenderness, no cyanosis, no clubbing, ROM intact, no edema. [] Neurologic: Alert and oriented X 3, normal motor function, normal sensory function, no focal deficits noted. [] Psychologic: Affect normal, judgement normal, mood normal. [] Current Patient Data Vital Signs Vital Signs Date Time Temp Pulse Resp B/P (MAP) Pulse Ox O2 Delivery O2 Flow Rate FiO2 06/03/18 20:15 105 234/126 06/03/18 19:30 16 99 06/03/18 18:08 Room Air 06/03/18 17:30 98.5 98.5 Lab Values Laboratory Tests Test 06/03/18 17:50 06/03/18 20:30 White Blood Count 9.1 x10^3/uL (4.0-11.0) Red Blood Count 4.45 x10^6/uL (3.50-5.40) Hemoglobin 14.8 g/dL (12.0-15.5) Hematocrit 42.3 % (36.0-47.0) Mean Corpuscular Volume 95 fL (79-100) Mean Corpuscular Hemoglobin 33 pg (25-35) Mean Corpuscular Hemoglobin Concent 35 g/dL (31-37) Red Cell Distribution Width 14.4 % (11.5-14.5) Platelet Count 287 x10^3/uL (140-400) Neutrophils (%) (Auto) 54 % (31-73) Lymphocytes (%) (Auto) 37 % (24-48) Monocytes (%) (Auto) 8 % (0-9) Eosinophils (%) (Auto) 1 % (0-3) Basophils (%) (Auto) 0 % (0-3) Neutrophils # (Auto) 4.9 x10^3uL (1.8-7.7) Lymphocytes # (Auto) 3.3 x10^3/uL (1.0-4.8) Monocytes # (Auto) 0.7 x10^3/uL (0.0-1.1) Eosinophils # (Auto) 0.1 x10^3/uL (0.0-0.7) Basophils # (Auto) 0.0 x10^3/uL (0.0-0.2) Prothrombin Time 13.3 SEC (11.7-14.0) Prothrombin Time INR 1.1 (0.8-1.1) PTT 25 SEC (24-38) Sodium Level 134 mmol/L (136-145) L Potassium Level 3.0 mmol/L (3.5-5.1) L Chloride Level 98 mmol/L (98-107) Carbon Dioxide Level 18 mmol/L (21-32) L Anion Gap 18 (6-14) H Blood Urea Nitrogen 10 mg/dL (7-20) Creatinine 1.0 mg/dL (0.6-1.0) Estimated GFR (Cockcroft-Gault) 70.5 BUN/Creatinine Ratio 10 (6-20) Glucose Level 73 mg/dL (70-99) Calcium Level 9.5 mg/dL (8.5-10.1) Magnesium Level 2.1 mg/dL (1.8-2.4) Total Bilirubin 0.8 mg/dL (0.2-1.0) Aspartate Amino Transferase (AST) 31 U/L (15-37) Alanine Aminotransferase (ALT) 23 U/L (14-59) Alkaline Phosphatase 92 U/L (46-116) Creatine Kinase 373 U/L (26-192) H Creatine Kinase MB (Mass) 3.7 ng/mL (0.0-3.6) H Creatine Kinase MB Relative Index 1.0 % (0-4) Troponin I Quantitative < 0.017 ng/mL (0.000-0.055) TB-Ayr-X-Type Natriuretic Peptide 39 pg/mL (0-124) Total Protein 8.0 g/dL (6.4-8.2) Albumin 4.7 g/dL (3.4-5.0) Albumin/Globulin Ratio 1.4 (1.0-1.7) Lipase 304 U/L (73-393) Ethyl Alcohol Level 113 mg/dL (0-10) H Glucose (Fingerstick) 85 mg/dL (70-99) Laboratory Tests 06/03/18 17:50 Laboratory Tests 06/03/18 17:50 EKG EKG EKG obtained 06/03/18 at [address] Dimas Sinus tachycardia Vent rate 101 Radiology/Procedures Radiology/Procedures [] Course & Med Decision Making Course & Med Decision Making Pertinent Labs reviewed. (See chart for details) 1945: RN reports pt's BP remains elevated at 225/122 this was discussed with Dr. Dimas and pt will receive IV Labetalol 20mg and with discharge home will be provided with Rx for her Norvasc 5mg PO again. Pt reported she was given medication in December while in ER but when she ran out of the Rx she never went back in for re-eval or additional Rxs. Test results were discussed with pt. EKG with no acute ST elevation/STEMI and troponin <0.017; alcohol 113; Na 134 and K + 3.0. PO K+ 40meq ordered for replacement as pt had improvement in sxs with IV flds and dose of zofran DIETITIAN ASSISTANT along with dose of Ativan while in ER. 2014: RN reports pt complaining of nausea and is diaphoretic- on re-eval pt is more anxious denying any CP/palpitations/abd pain/SOA. On recheck pt's accu check was 80s. Pt remains A&Ox3. Discussed admission for further eval/ monitoring. Pt is agreeable with admit plan. Pt received IV Labetalol while in ER along with additional dose of Ativan/zofran. Spoke with Dr. Stein, hospitalist regarding pt's case and plans for admit. BP 175/ 90 HR 90 at time of admission. Dragon Disclaimer Dragon Disclaimer This electronic medical record was generated, in whole or in part, using a voice recognition dictation system. Departure Departure Impression: Primary Impression: Nausea and vomiting Additional Impressions: Elevated blood pressure reading Drug use Disposition: ADMITTED INPATIENT Admitting Physician: Xie. Sheffield Condition: STABLE Referrals: NGOZI ELISE MD (PCP) Additional Instructions: Problem Qualifiers RAISA BAUM APRN Jun 03, 2018 19:48
[2018-06-03] MEDS ORDERED: LABETALOL 20 MG/4 ML DISP.SYRIN. IVP ONE (20:00)
[2018-06-03] MEDS ORDERED: AMLO5TAB4 PO (20:14)
[2018-06-03 20:59] LABS: BILIRUBIN,URINE NEGATIVE (NEG); CLARITY,URINE CLEAR; COLOR,URINE YELLOW; NITRITE,URINE NEGATIVE (NEG); PH,URINE 5.5; PROTEIN,URINE NEGATIVE (NEG-TRACE); UROBILINOGEN,URINE 0.2 mg/dL (0.2 mg/dL)
[2018-06-03] MEDS ORDERED: METOCLOPRAMIDE HCL 10 MG/2 ML VIAL. IV ONE (21:00)
[2018-06-03 21:04] LABS: BACTERIA,URINE MANY /HPF (0-FEW); BARBITURATES NEG (NEG); BENZODIAZEPINES NEG (NEG); CANNABINOIDS POS (NEG); COCAINE POS (NEG); GRANULAR CASTS,URINE FEW /HPF; HYALINE CASTS, URINE MANY /HPF; METHADONE NEG (NEG); OPIATES NEG (NEG); PHENCYCLIDINE NEG (NEG); RBC,URINE OCC /HPF (0-2); SQUAMOUS EPITHELIAL CELL,UR MOD /LPF
[2018-06-03 21:19] LABS: AMPHETAMINE/METHAMPHETAMINE NEG (NEG)
[2018-06-03 22:25] VITALS: BP 222/138
[2018-06-03 23:05] VITALS: BP 202/122
[2018-06-03] MEDS ORDERED: NITROGLYCERIN PREMIX 250 ML IV ONE (23:30)
[2018-06-03] MEDS: ONDANSETRON PF 4 MG/2 ML VIAL. IV PRN (23:39)
[2018-06-03 23:40] VITALS: BP 198/120
[2018-06-03 23:45] VITALS: BP 202/118
[2018-06-03] MEDS ORDERED: NITROGLYCERIN PREMIX 250 ML IV PRN (23:45)
[2018-06-03 23:50] VITALS: BP 214/117
[2018-06-03 23:55] VITALS: BP 220/125
[2018-06-04] VITALS (46 sets, daily range): BP systolic 100–205; BP diastolic 55–125
[2018-06-04] MEDS: ONDANSETRON PF 4 MG/2 ML VIAL. IV PRN (06:07)
--- NOTE | 2018-06-04 07:04 | EKG ---
[facility] [address] [place] [address] Test Date: 2018-06-03 Test Time: 18:28:48 Pat Name: NANCY GASTELUM Department: Room: 208 1 Gender: F [employer]: : 1965 Requested By: RAISA BAUM Order Number: [id number] Reading MD: Davis Nassar MD Measurements Intervals [place] Rate: 100 P: 64 MD: 146 QRS: 44 QRSD: 88 T: 64 QT: 360 QTc: 467 Interpretive Statements SINUS TACHYCARDIA Electronically Signed On 06-04-2018 12:33:00 CDT by Davsi Nassar MD
[2018-06-04] MEDS ORDERED: ONDANSETRON PF 4 MG/2 ML VIAL. IV PRN ×2 (07:15→09:30)
[2018-06-04 08:42] LABS: BASO % 0 % (0-3); EOS % 0 % (0-3); HEMATOCRIT 39.6 % (36.0-47.0); HEMOGLOBIN 13.9 g/dL (12.0-15.5); LYMPH % 12 % (24-48); MEAN CORPUSCULAR HEMOGLOBIN 33 pg (25-35); MEAN CORPUSCULAR HGB CONC 35 g/dL (31-37); MEAN CORPUSCULAR VOLUME 94 fL (79-100); MONO # 0.6 x10^3/uL (0.0-1.1); MONO % 7 % (0-9); NEUT # 6.9 x10^3uL (1.8-7.7); NEUT % 81 % (31-73); PLATELET COUNT 289 x10^3/uL (140-400); RED BLOOD COUNT 4.22 x10^6/uL (3.50-5.40); RED CELL DISTRIBUTION WIDTH 13.9 % (11.5-14.5); WHITE BLOOD COUNT 8.5 x10^3/uL (4.0-11.0)
[2018-06-04 08:59] LABS: CALCIUM 8.8 mg/dL (8.5-10.1); CREATININE 0.9 mg/dL (0.6-1.0); GFR 79.6; POTASSIUM 3.5 mmol/L (3.5-5.1)
[2018-06-04] MEDS ORDERED: PROCHLORPERAZINE 10 MG/2 ML VIAL. IV PRN (09:15)
--- NOTE | 2018-06-04 09:29 | PDOC1 ---
History and Physical Date of Admission Date of Admission DATE: 06/04/18 TIME: 09:26 Identification/Chief Complaint Chief Complaint nausea and vomiting Source Source: Chart review, Patient History of Present Illness History of Present Illness Ms. Mesa, is a 52-year-old female admit for severe upper abd pain radiating into center of back with N/V/D. She recently had a large green party sunday for leaving town to [place], [place] Pt reports she had similar sxs yesterday and was evaluated at her house by EMS and tx'd with zofran and sxs improved. Pt reports approx. 2 hrs [employer] she developed onset of N/V/D and so called EMS for transport to hospital. Pt reports she had 1 episode of vomiting and multiple episodes of diarrhea. EMS reported BS 88 and they had started IV and gave her Zofran. Pt denies CP/ palpitations or SOA. Pt denies swelling in extremities. Pt denies anxiety/ depression/SI. Past Medical History Cardiovascular: No pertinent hx Pulmonary: COPD CENTRAL NERVOUS SYSTEM: Other GI: GERD Heme/Onc: No pertinent hx Hepatobiliary: No pertinent hx, Hep A/B/C Psych: Bipolar, Schizophrenia Musculoskeletal: Other Rheumatologic: No pertinent hx Infectious disease: No pertinent hx Renal/: UTI Endocrine: No pertinent hx Past Surgical History Past Surgical History: Appendectomy, Cholecystectomy, , Tubal Ligation , Hysterectomy Family History Family History: Family History Unknown Social History ALCOHOL: heavy Drugs: Cocaine, Marijuana Current Problem List Problem List Problems Medical Problems: (1) Abdominal pain Status: Acute (2) Drug use Status: Acute (3) Elevated blood pressure reading Status: Acute (4) Nausea and vomiting Status: Acute Current Medications Current Medications Current Medications Sodium Chloride 1,000 ml @ 1,000 mls/hr 1X ONCE IV Last administered on at 18:28; Start 06/03/18 at 17:45; Stop 06/03/18 at 18:44; Status DC Lorazepam (Ativan) 1 mg 1X ONCE IV Last administered on 06/03/18at 18:28; Start 06/03/18 at 17:45; Stop 06/03/18 at 17:54; Status DC Potassium Chloride (Klor-Con) 40 meq 1X ONCE PO ; Start 06/03/18 at 18:45; Stop 06/03/18 at 18:46; Status DC Sodium Chloride 500 ml @ 500 mls/hr 1X ONCE IV Last administered on 06/03/18at 19:25; Start 06/03/18 at 19:15; Stop 06/03/18 at 20:14; Status DC Ondansetron HCl (Zofran) 4 mg 1X ONCE IV Last administered on 06/03/18at 19:25; Start 06/03/18 at 19:15; Stop 06/03/18 at 19:16; Status DC Labetalol HCl (Normodyne Iv Push) 20 mg 1X ONCE IVP Last administered on at 20:15; Start 06/03/18 at 20:00; Stop 06/03/18 at 20:01; Status DC Metoclopramide HCl (Reglan Vial) 10 mg 1X ONCE IV Last administered on at 22:15; Start 06/03/18 at 21:00; Stop 06/03/18 at 21:01; Status DC Lorazepam (Ativan) 0.5 mg 1X ONCE IV Last administered on 06/03/18at 22:15; Start 06/03/18 at 21:00; Stop 06/03/18 at 21:01; Status DC Ondansetron HCl (Zofran) 4 mg PRN Q8HRS PRN IV NAUSEA/VOMITING Last administered on 06/04/18at 06:07; Start 06/03/18 at 21:00; Stop 06/04/18 at 07:01; Status DC Nitroglycerin/ Dextrose 250 ml @ 0 mls/hr 1X ONCE IV Last administered on at 23:40; Start 06/03/18 at 23:30; Stop 06/03/18 at 23:31; Status DC Nitroglycerin/ Dextrose 250 ml @ 1.5 mls/hr CONT PRN IV SEE I/O RECORD; Start 06/03/18 at 23:45 Nicardipine HCl 50 mg/Sodium Chloride 270 ml @ 27 mls/hr CONT PRN IV SEE I/O RECORD Last administered on 06/04/18at 08:15; Start 06/04/18 at 06:45 Ondansetron HCl (Zofran) 4 mg PRN Q6HRS PRN IV NAUSEA/VOMITING; Start 06/04/18 at 07:15; Stop 06/04/18 at 09:17; Status DC Prochlorperazine Edisylate (Compazine) 10 mg PRN Q6HRS PRN IV NAUSEA/VOMITING; Start 06/04/18 at 09:15 Promethazine HCl (Phenergan) 12.5 mg PRN Q6HRS PRN PO NAUSEA/VOMITING; Start at 09:15 Promethazine HCl (Phenergan Im) 25 mg 1X ONCE IM ; Start 06/04/18 at 09:30; Stop 06/04/18 at 09:31 Ondansetron HCl (Zofran) 8 mg PRN Q8HRS PRN IV NAUSEA/VOMITING; Start 06/04/18 at 09:30 Multivitamins 10 ml/Thiamine HCl 100 mg/Folic Acid 1 mg/Sodium Chloride 1,011.2 ml @ 100 mls/ hr DAILY IV ; Start 06/05/18 at 09:00; Stop 06/09/18 at 19:07; Status UNV Lorazepam (Ativan) 2 mg PRN Q1HR PRN IV For CIWA 8-14; Start 06/04/18 at 09:30; Status UNV Lorazepam (Ativan) 4 mg PRN Q1HR PRN IV For CIWA 15 or greater; Start 06/04/18 at 09:30; Status UNV Aspirin (Georgina Aspirin) 325 mg BID PRN PO PAIN; Start 06/04/18 at 09:30; Status UNV Active Scripts Active Aspirin 325 Mg Tablet 1 Tab PO BID PRN Norvasc (Amlodipine Besylate) 5 Mg Tablet 1 Tab PO DAILY Zofran Odt (Ondansetron) 4 Mg Tab.rapdis 1 Tab SL Q4HRS PRN Promethazine Hcl 25 Mg Tablet 1 Tab PO PRN Q6HRS Allergies Allergies: Coded Allergies: No Known Drug Allergies (Unverified , 08/29/14) ROS General: YES: Fatigue, Malaise PSYCHOLOGICAL ROS: YES: Anxiety, Sleep disturbances Eyes: No Blurry vision, No Decreased vision, No Double vision, No Dry eyes, No Excessive tearing, No Eye Pain, No Itchy Eyes, No Loss of vision, No Photophobia , No Scotomata, No Uses contacts, No Uses glasses, No Other HEENT: No: Heacaches, Visual Changes, Hearing change, Nasal congestion, Nasal discharge, Oral lesions, Sinus pain, Sore Throat, Epistaxis, Sneezing, Snoring, Tinnitus, Vertigo, Vocal changes, Other Respiratory: YES: Cough; No: Hemoptysis, Orthopnea, Pleuritic Pain, Shortness of breath, SOB with excertion, Sputum Changes, Stridor, Tachypnea, Wheezing, Other Cardiovascular: yes Chest Pain; No Palpitations, No Orthopnea, No Paroxysmal Noc. Dyspnea, No Edema, No Lt Headedness, No Other Gastrointestinal: Yes Nausea, Yes Vomiting, Yes Abdominal Pain; No Diarrhea, No Constipation, No Melena, No Hematochezia, No Other Genitourinary: No Dysuria, No Frequency, No Incontinence, No Hematuria, No Retention, No Discharge, No Urgency, No Pain, No Flank Pain, No Other, No , No , No , No , No , No , No Musculoskeletal: Yes Gait Disturbance, Yes Joint Pain, Yes Joint Swelling Neurological: No Behavorial Changes, No Bowel/Bladder ControlChng, No Confusion , No Dizziness, No Gait Disturbance, No Headaches, No Impaired Coord/balance, No Memory Loss, No Numbness/Tingling, No Seizures, No Speech Problems, No Tremors, No Visual Changes, No Weakness, No Other Skin: Yes Dry Skin Physical Exam General: Alert, Cooperative, moderate distress, Other (some confusion) HEENT: Atraumatic, PERRLA, Mucous membr. moist/pink Lungs: Clear to auscultation Heart: S1S2, RRR Abdomen: Normal bowel sounds, Soft Rectal Exam: deferred Extremities: No cyanosis, No edema Skin: No rashes Neuro: Normal speech, Sensation intact Psych/Mental Status: Mental status NL Vitals Vitals Vital Signs Date Time Temp Pulse Resp B/P (MAP) Pulse Ox O2 Delivery O2 Flow Rate FiO2 06/04/18 07:09 121 18 200/112 (141) Room Air 06/04/18 07:00 99.0 96 99.0 Labs Labs Laboratory Tests Test 06/03/18 17:50 06/03/18 20:30 06/03/18 20:40 06/04/18 08:24 White Blood Count 9.1 x10^3/uL (4.0-11.0) Red Blood Count 4.45 x10^6/uL (3.50-5.40) Hemoglobin 14.8 g/dL (12.0-15.5) Hematocrit 42.3 % (36.0-47.0) Mean Corpuscular Volume 95 fL (79-100) Mean Corpuscular Hemoglobin 33 pg (25-35) Mean Corpuscular Hemoglobin Concent 35 g/dL (31-37) Red Cell Distribution Width 14.4 % (11.5-14.5) Platelet Count 287 x10^3/uL (140-400) Neutrophils (%) (Auto) 54 % (31-73) Lymphocytes (%) (Auto) 37 % (24-48) Monocytes (%) (Auto) 8 % (0-9) Eosinophils (%) (Auto) 1 % (0-3) Basophils (%) (Auto) 0 % (0-3) Neutrophils # (Auto) 4.9 x10^3uL (1.8-7.7) Lymphocytes # (Auto) 3.3 x10^3/uL (1.0-4.8) Monocytes # (Auto) 0.7 x10^3/uL (0.0-1.1) Eosinophils # (Auto) 0.1 x10^3/uL (0.0-0.7) Basophils # (Auto) 0.0 x10^3/uL (0.0-0.2) Prothrombin Time 13.3 SEC (11.7-14.0) Prothromb Time International Ratio 1.1 (0.8-1.1) Activated Partial Thromboplast Time 25 SEC (24-38) Sodium Level 134 mmol/L (136-145) 131 mmol/L (136-145) Potassium Level 3.0 mmol/L (3.5-5.1) 3.5 mmol/L (3.5-5.1) Chloride Level 98 mmol/L (98-107) 96 mmol/L (98-107) Carbon Dioxide Level 18 mmol/L (21-32) 19 mmol/L (21-32) Anion Gap 18 (6-14) 16 (6-14) Blood Urea Nitrogen 10 mg/dL (7-20) 11 mg/dL (7-20) Creatinine 1.0 mg/dL (0.6-1.0) 0.9 mg/dL (0.6-1.0) Estimated GFR (Cockcroft-Gault) 70.5 79.6 BUN/Creatinine Ratio 10 (6-20) Glucose Level 73 mg/dL (70-99) 114 mg/dL (70-99) Calcium Level 9.5 mg/dL (8.5-10.1) 8.8 mg/dL (8.5-10.1) Magnesium Level 2.1 mg/dL (1.8-2.4) Total Bilirubin 0.8 mg/dL (0.2-1.0) Aspartate Amino Transf (AST/SGOT) 31 U/L (15-37) Alanine Aminotransferase (ALT/SGPT) 23 U/L (14-59) Alkaline Phosphatase 92 U/L (46-116) Creatine Kinase 373 U/L (26-192) Creatine Kinase MB (Mass) 3.7 ng/mL (0.0-3.6) Creatine Kinase MB Relative Index 1.0 % (0-4) Troponin I Quantitative < 0.017 ng/mL (0.000-0.055) XF-Dzb-B-Type Natriuretic Peptide 39 pg/mL (0-124) Total Protein 8.0 g/dL (6.4-8.2) Albumin 4.7 g/dL (3.4-5.0) Albumin/Globulin Ratio 1.4 (1.0-1.7) Lipase 304 U/L (73-393) Ethyl Alcohol Level 113 mg/dL (0-10) Glucose (Fingerstick) 85 mg/dL (70-99) Urine Collection Type Unknown Urine Color Yellow Urine Clarity Clear Urine pH 5.5 Urine Specific [place] 1.015 Urine Protein Negative mg/dL (NEG-TRACE) Urine Glucose (UA) Negative mg/dL (NEG) Urine Ketones (Stick) 15 mg/dL (NEG) Urine Blood Negative (NEG) Urine Nitrite Negative (NEG) Urine Bilirubin Negative (NEG) Urine Urobilinogen Dipstick 0.2 mg/dL (0.2 mg/dL) Urine Leukocyte Esterase Negative (NEG) Urine RBC Occ /HPF (0-2) Urine WBC 5-10 /HPF (0-4) Urine Squamous Epithelial Cells Mod /LPF Urine Bacteria Many /HPF (0-FEW) Urine Cellular Casts Few /HPF Urine Hyaline Casts Many /HPF Urine Granular Casts Few /HPF Urine Opiates Screen Neg (NEG) Urine Methadone Screen Neg (NEG) Urine Barbiturates Neg (NEG) Urine Phencyclidine Screen Neg (NEG) Urine Amphetamine/Methamphetamine Neg (NEG) Urine Benzodiazepines Screen Neg (NEG) Urine Cocaine Screen Pos (NEG) Urine Cannabinoids Screen Pos (NEG) Urine Ethyl Alcohol Pos (NEG) Test 06/04/18 08:29 White Blood Count 8.5 x10^3/uL (4.0-11.0) Red Blood Count 4.22 x10^6/uL (3.50-5.40) Hemoglobin 13.9 g/dL (12.0-15.5) Hematocrit 39.6 % (36.0-47.0) Mean Corpuscular Volume 94 fL (79-100) Mean Corpuscular Hemoglobin 33 pg (25-35) Mean Corpuscular Hemoglobin Concent 35 g/dL (31-37) Red Cell Distribution Width 13.9 % (11.5-14.5) Platelet Count 289 x10^3/uL (140-400) Neutrophils (%) (Auto) 81 % (31-73) Lymphocytes (%) (Auto) 12 % (24-48) Monocytes (%) (Auto) 7 % (0-9) Eosinophils (%) (Auto) 0 % (0-3) Basophils (%) (Auto) 0 % (0-3) Neutrophils # (Auto) 6.9 x10^3uL (1.8-7.7) Lymphocytes # (Auto) 1.0 x10^3/uL (1.0-4.8) Monocytes # (Auto) 0.6 x10^3/uL (0.0-1.1) Eosinophils # (Auto) 0.0 x10^3/uL (0.0-0.7) Basophils # (Auto) 0.0 x10^3/uL (0.0-0.2) Laboratory Tests Test 06/03/18 17:50 06/03/18 20:30 06/03/18 20:40 06/04/18 08:24 White Blood Count 9.1 x10^3/uL (4.0-11.0) Red Blood Count 4.45 x10^6/uL (3.50-5.40) Hemoglobin 14.8 g/dL (12.0-15.5) Hematocrit 42.3 % (36.0-47.0) Mean Corpuscular Volume 95 fL (79-100) Mean Corpuscular Hemoglobin 33 pg (25-35) Mean Corpuscular Hemoglobin Concent 35 g/dL (31-37) Red Cell Distribution Width 14.4 % (11.5-14.5) Platelet Count 287 x10^3/uL (140-400) Neutrophils (%) (Auto) 54 % (31-73) Lymphocytes (%) (Auto) 37 % (24-48) Monocytes (%) (Auto) 8 % (0-9) Eosinophils (%) (Auto) 1 % (0-3) Basophils (%) (Auto) 0 % (0-3) Neutrophils # (Auto) 4.9 x10^3uL (1.8-7.7) Lymphocytes # (Auto) 3.3 x10^3/uL (1.0-4.8) Monocytes # (Auto) 0.7 x10^3/uL (0.0-1.1) Eosinophils # (Auto) 0.1 x10^3/uL (0.0-0.7) Basophils # (Auto) 0.0 x10^3/uL (0.0-0.2) Prothrombin Time 13.3 SEC (11.7-14.0) Prothromb Time International Ratio 1.1 (0.8-1.1) Activated Partial Thromboplast Time 25 SEC (24-38) Sodium Level 134 mmol/L (136-145) 131 mmol/L (136-145) Potassium Level 3.0 mmol/L (3.5-5.1) 3.5 mmol/L (3.5-5.1) Chloride Level 98 mmol/L (98-107) 96 mmol/L (98-107) Carbon Dioxide Level 18 mmol/L (21-32) 19 mmol/L (21-32) Anion Gap 18 (6-14) 16 (6-14) Blood Urea Nitrogen 10 mg/dL (7-20) 11 mg/dL (7-20) Creatinine 1.0 mg/dL (0.6-1.0) 0.9 mg/dL (0.6-1.0) Estimated GFR (Cockcroft-Gault) 70.5 79.6 BUN/Creatinine Ratio 10 (6-20) Glucose Level 73 mg/dL (70-99) 114 mg/dL (70-99) Calcium Level 9.5 mg/dL (8.5-10.1) 8.8 mg/dL (8.5-10.1) Magnesium Level 2.1 mg/dL (1.8-2.4) Total Bilirubin 0.8 mg/dL (0.2-1.0) Aspartate Amino Transf (AST/SGOT) 31 U/L (15-37) Alanine Aminotransferase (ALT/SGPT) 23 U/L (14-59) Alkaline Phosphatase 92 U/L (46-116) Creatine Kinase 373 U/L (26-192) Creatine Kinase MB (Mass) 3.7 ng/mL (0.0-3.6) Creatine Kinase MB Relative Index 1.0 % (0-4) Troponin I Quantitative < 0.017 ng/mL (0.000-0.055) DW-Ebk-O-Type Natriuretic Peptide 39 pg/mL (0-124) Total Protein 8.0 g/dL (6.4-8.2) Albumin 4.7 g/dL (3.4-5.0) Albumin/Globulin Ratio 1.4 (1.0-1.7) Lipase 304 U/L (73-393) Ethyl Alcohol Level 113 mg/dL (0-10) Glucose (Fingerstick) 85 mg/dL (70-99) Urine Collection Type Unknown Urine Color Yellow Urine Clarity Clear Urine pH 5.5 Urine Specific [place] 1.015 Urine Protein Negative mg/dL (NEG-TRACE) Urine Glucose (UA) Negative mg/dL (NEG) Urine Ketones (Stick) 15 mg/dL (NEG) Urine Blood Negative (NEG) Urine Nitrite Negative (NEG) Urine Bilirubin Negative (NEG) Urine Urobilinogen Dipstick 0.2 mg/dL (0.2 mg/dL) Urine Leukocyte Esterase Negative (NEG) Urine RBC Occ /HPF (0-2) Urine WBC 5-10 /HPF (0-4) Urine Squamous Epithelial Cells Mod /LPF Urine Bacteria Many /HPF (0-FEW) Urine Cellular Casts Few /HPF Urine Hyaline Casts Many /HPF Urine Granular Casts Few /HPF Urine Opiates Screen Neg (NEG) Urine Methadone Screen Neg (NEG) Urine Barbiturates Neg (NEG) Urine Phencyclidine Screen Neg (NEG) Urine Amphetamine/Methamphetamine Neg (NEG) Urine Benzodiazepines Screen Neg (NEG) Urine Cocaine Screen Pos (NEG) Urine Cannabinoids Screen Pos (NEG) Urine Ethyl Alcohol Pos (NEG) Test 06/04/18 08:29 White Blood Count 8.5 x10^3/uL (4.0-11.0) Red Blood Count 4.22 x10^6/uL (3.50-5.40) Hemoglobin 13.9 g/dL (12.0-15.5) Hematocrit 39.6 % (36.0-47.0) Mean Corpuscular Volume 94 fL (79-100) Mean Corpuscular Hemoglobin 33 pg (25-35) Mean Corpuscular Hemoglobin Concent 35 g/dL (31-37) Red Cell Distribution Width 13.9 % (11.5-14.5) Platelet Count 289 x10^3/uL (140-400) Neutrophils (%) (Auto) 81 % (31-73) Lymphocytes (%) (Auto) 12 % (24-48) Monocytes (%) (Auto) 7 % (0-9) Eosinophils (%) (Auto) 0 % (0-3) Basophils (%) (Auto) 0 % (0-3) Neutrophils # (Auto) 6.9 x10^3uL (1.8-7.7) Lymphocytes # (Auto) 1.0 x10^3/uL (1.0-4.8) Monocytes # (Auto) 0.6 x10^3/uL (0.0-1.1) Eosinophils # (Auto) 0.0 x10^3/uL (0.0-0.7) Basophils # (Auto) 0.0 x10^3/uL (0.0-0.2) VTE Prophylaxis Ordered VTE Prophylaxis Devices: No VTE Pharmacological Prophylaxi: Yes Assessment/Plan Assessment/Plan acute toxic encephalopathy EtOH withdrawl w. delirium, CIWA, ativan, banana bag, accelerated htn, poor control, cardene and nitro gtt, start norvasc 10, try to wean, CCV consult substance abuse poor compliance acute on chronci back pain nausea and vomiting, poor control GUILLERMO MUNOZ MD Jun 04, 2018 09:29
[2018-06-04] MEDS ORDERED: PROMETHAZINE IM 25 MG/ML VIAL IM ONE (09:30)
[2018-06-04] MEDS ORDERED: amLODIPine BESYLATE 10 MG TABLET PO SCH (09:30)
[2018-06-04] MEDS ORDERED: ASPIRIN 325 MG TABLET PO PRN (09:30)
[2018-06-04] MEDS: LIDOCAINE (700MG/PATCH) PATCH. TD SCH (09:43)
[2018-06-04] MEDS ORDERED: KETOROLAC 15 MG/ML VIAL. IV ONE (10:00)
[2018-06-04] MEDS ORDERED: MULTIVIT INFUSN,ADULT 4,VIT K 10 ML, THIAMINE 100 MG, FOLIC ACID 1 MG in IV NORMAL SALI... IV SCH (10:30)
--- NOTE | 2018-06-04 11:20 | PDOC2 ---
GI CONSULT Reason For Consult: vomiting nausea HPI: HPI: 52 y/o female admitted again through ER where she was evaluated for vomiting, abd pain, and diarrhea. History from staff and chart - she's drowsy and unable to participate much. Ethyl alcohol 113, tox screen + cannabinoids and cocaine (as in the past). We saw her in Nov and December of this year for similar complaints. One CT showed possible mild distal colon thickening (note follow-up CT unrevealing). UGI w/ SBFT showed mildly decreased esophageal peristalsis and gastritis. Recommended PPI, unclear compliance w/ this. EGD showed normal esophagus, chronic gastritis , and normal duodenum - no biopsies. H/o C Diff treated w/ Flagyl. H/o Hep C ( treated). S/p cholecystectomy. H/o colon polyps w/ last colonoscopy @ ~2 years ago. PMH: PMH: substance abuse, Hep C, colon polyps, bipolar, anxiety, depression, headaches, appendectomy, cholecystectomy, hysterectomy, tubal ligation, C section FH: Family History: No pertinent hx Social History: Smoke: <1 pack per day ALCOHOL: heavy Drugs: Cocaine, Marijuana ROS: Unable to obtain currently. Vitals: Vitals: Vital Signs Date Time Temp Pulse Resp B/P (MAP) Pulse Ox O2 Delivery O2 Flow Rate FiO2 06/04/18 10:33 99.3 127 18 161/86 (111) 96 Room Air 99.3 Labs: Labs: Laboratory Tests Test 06/03/18 17:50 06/03/18 20:30 06/03/18 20:40 06/04/18 08:24 White Blood Count 9.1 x10^3/uL (4.0-11.0) Red Blood Count 4.45 x10^6/uL (3.50-5.40) Hemoglobin 14.8 g/dL (12.0-15.5) Hematocrit 42.3 % (36.0-47.0) Mean Corpuscular Volume 95 fL (79-100) Mean Corpuscular Hemoglobin 33 pg (25-35) Mean Corpuscular Hemoglobin Concent 35 g/dL (31-37) Red Cell Distribution Width 14.4 % (11.5-14.5) Platelet Count 287 x10^3/uL (140-400) Neutrophils (%) (Auto) 54 % (31-73) Lymphocytes (%) (Auto) 37 % (24-48) Monocytes (%) (Auto) 8 % (0-9) Eosinophils (%) (Auto) 1 % (0-3) Basophils (%) (Auto) 0 % (0-3) Neutrophils # (Auto) 4.9 x10^3uL (1.8-7.7) Lymphocytes # (Auto) 3.3 x10^3/uL (1.0-4.8) Monocytes # (Auto) 0.7 x10^3/uL (0.0-1.1) Eosinophils # (Auto) 0.1 x10^3/uL (0.0-0.7) Basophils # (Auto) 0.0 x10^3/uL (0.0-0.2) Prothrombin Time 13.3 SEC (11.7-14.0) Prothromb Time International Ratio 1.1 (0.8-1.1) Activated Partial Thromboplast Time 25 SEC (24-38) Sodium Level 134 mmol/L (136-145) 131 mmol/L (136-145) Potassium Level 3.0 mmol/L (3.5-5.1) 3.5 mmol/L (3.5-5.1) Chloride Level 98 mmol/L (98-107) 96 mmol/L (98-107) Carbon Dioxide Level 18 mmol/L (21-32) 19 mmol/L (21-32) Anion Gap 18 (6-14) 16 (6-14) Blood Urea Nitrogen 10 mg/dL (7-20) 11 mg/dL (7-20) Creatinine 1.0 mg/dL (0.6-1.0) 0.9 mg/dL (0.6-1.0) Estimated GFR (Cockcroft-Gault) 70.5 79.6 BUN/Creatinine Ratio 10 (6-20) Glucose Level 73 mg/dL (70-99) 114 mg/dL (70-99) Calcium Level 9.5 mg/dL (8.5-10.1) 8.8 mg/dL (8.5-10.1) Magnesium Level 2.1 mg/dL (1.8-2.4) Total Bilirubin 0.8 mg/dL (0.2-1.0) Aspartate Amino Transf (AST/SGOT) 31 U/L (15-37) Alanine Aminotransferase (ALT/SGPT) 23 U/L (14-59) Alkaline Phosphatase 92 U/L (46-116) Creatine Kinase 373 U/L (26-192) Creatine Kinase MB (Mass) 3.7 ng/mL (0.0-3.6) Creatine Kinase MB Relative Index 1.0 % (0-4) Troponin I Quantitative < 0.017 ng/mL (0.000-0.055) DM-Tag-I-Type Natriuretic Peptide 39 pg/mL (0-124) Total Protein 8.0 g/dL (6.4-8.2) Albumin 4.7 g/dL (3.4-5.0) Albumin/Globulin Ratio 1.4 (1.0-1.7) Lipase 304 U/L (73-393) Ethyl Alcohol Level 113 mg/dL (0-10) Glucose (Fingerstick) 85 mg/dL (70-99) Urine Collection Type Unknown Urine Color Yellow Urine Clarity Clear Urine pH 5.5 Urine Specific [place] 1.015 Urine Protein Negative mg/dL (NEG-TRACE) Urine Glucose (UA) Negative mg/dL (NEG) Urine Ketones (Stick) 15 mg/dL (NEG) Urine Blood Negative (NEG) Urine Nitrite Negative (NEG) Urine Bilirubin Negative (NEG) Urine Urobilinogen Dipstick 0.2 mg/dL (0.2 mg/dL) Urine Leukocyte Esterase Negative (NEG) Urine RBC Occ /HPF (0-2) Urine WBC 5-10 /HPF (0-4) Urine Squamous Epithelial Cells Mod /LPF Urine Bacteria Many /HPF (0-FEW) Urine Cellular Casts Few /HPF Urine Hyaline Casts Many /HPF Urine Granular Casts Few /HPF Urine Opiates Screen Neg (NEG) Urine Methadone Screen Neg (NEG) Urine Barbiturates Neg (NEG) Urine Phencyclidine Screen Neg (NEG) Urine Amphetamine/Methamphetamine Neg (NEG) Urine Benzodiazepines Screen Neg (NEG) Urine Cocaine Screen Pos (NEG) Urine Cannabinoids Screen Pos (NEG) Urine Ethyl Alcohol Pos (NEG) Test 06/04/18 08:29 White Blood Count 8.5 x10^3/uL (4.0-11.0) Red Blood Count 4.22 x10^6/uL (3.50-5.40) Hemoglobin 13.9 g/dL (12.0-15.5) Hematocrit 39.6 % (36.0-47.0) Mean Corpuscular Volume 94 fL (79-100) Mean Corpuscular Hemoglobin 33 pg (25-35) Mean Corpuscular Hemoglobin Concent 35 g/dL (31-37) Red Cell Distribution Width 13.9 % (11.5-14.5) Platelet Count 289 x10^3/uL (140-400) Neutrophils (%) (Auto) 81 % (31-73) Lymphocytes (%) (Auto) 12 % (24-48) Monocytes (%) (Auto) 7 % (0-9) Eosinophils (%) (Auto) 0 % (0-3) Basophils (%) (Auto) 0 % (0-3) Neutrophils # (Auto) 6.9 x10^3uL (1.8-7.7) Lymphocytes # (Auto) 1.0 x10^3/uL (1.0-4.8) Monocytes # (Auto) 0.6 x10^3/uL (0.0-1.1) Eosinophils # (Auto) 0.0 x10^3/uL (0.0-0.7) Basophils # (Auto) 0.0 x10^3/uL (0.0-0.2) Allergies: Coded Allergies: No Known Drug Allergies (Unverified , 08/29/14) Medications: Current Medications Medications (Trade) Dose Ordered Sig/Parisa Route PRN Reason Start Time Stop Time Status Last Admin Dose Admin Sodium Chloride 1,000 ml @ 1,000 mls/hr 1X ONCE IV 06/03/18 17:45 06/03/18 18:44 DC 06/03/18 18:28 Lorazepam (Ativan) 1 mg 1X ONCE IV 06/03/18 17:45 06/03/18 17:54 DC 06/03/18 18:28 Sodium Chloride 500 ml @ 500 mls/hr 1X ONCE IV 06/03/18 19:15 06/03/18 20:14 DC 06/03/18 19:25 Ondansetron HCl (Zofran) 4 mg 1X ONCE IV 06/03/18 19:15 06/03/18 19:16 DC 06/03/18 19:25 Labetalol HCl (Normodyne Iv Push) 20 mg 1X ONCE IVP 06/03/18 20:00 06/03/18 20:01 DC 06/03/18 20:15 Metoclopramide HCl (Reglan Vial) 10 mg 1X ONCE IV 06/03/18 21:00 06/03/18 21:01 DC 06/03/18 22:15 Lorazepam (Ativan) 0.5 mg 1X ONCE IV 06/03/18 21:00 06/03/18 21:01 DC 06/03/18 22:15 Ondansetron HCl (Zofran) 4 mg PRN Q8HRS PRN IV NAUSEA/VOMITING 06/03/18 21:00 06/04/18 07:01 DC 06/04/18 06:07 Nitroglycerin/ Dextrose 250 ml @ 0 mls/hr 1X ONCE IV 06/03/18 23:30 06/03/18 23:31 DC 06/03/18 23:40 Nicardipine HCl 50 mg/Sodium Chloride 270 ml @ 27 mls/hr CONT PRN IV SEE I/O RECORD 06/04/18 06:45 06/04/18 08:15 Multivitamins 10 ml/Thiamine HCl 100 mg/Folic Acid 1 mg/Sodium Chloride 1,011.2 ml @ 100 mls/ hr DAILY IV 06/04/18 10:30 06/08/18 19:07 06/04/18 10:32 Lorazepam (Ativan) 2 mg PRN Q1HR PRN IV For CIWA 8-14 06/04/18 09:30 06/04/18 09:43 Amlodipine Besylate (Norvasc) 10 mg DAILY PO 06/04/18 09:30 06/04/18 10:31 Lidocaine (Lidoderm) 1 patch DAILY TD 06/04/18 10:00 06/04/18 09:43 Ketorolac Tromethamine (Toradol 15mg Vial) 15 mg 1X ONCE IV 06/04/18 10:00 06/04/18 10:01 DC 06/04/18 10:32 Imaging: Imaging: Reviewed from past admissions. PE: GEN: NAD HEENT: Atraumatic, PERRL LUNGS: CTAB HEART: tachycardic ABD: NABS, S/ND/NT EXTREMITY: No edema SKIN: No rashes, no jaundice NEURO/PSYCH: drowsy, falls asleep during interview A/P: A/P: Substance abuse Recurrent n/v, abd pain, diarrhea - workup per HPI HTN, tachycardia H/o Hep C - treated S/p cholecystectomy CRC screen, h/o colon polyps - UTD H/o C Diff - treated w/ Flagyl -- Recurrent admission for same symptoms, suspected related to substance abuse and non-compliance. 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 Check C Diff if diarrhea is ongoing - history of this. Needs AA/NA, etc. RADHA ZIMMER Jun 04, 2018 11:20
[2018-06-04] MEDS ORDERED: LABETALOL 20 MG/4 ML DISP.SYRIN. IVP PRN (12:00)
--- NOTE | 2018-06-04 12:10 | PDOC2 ---
CARDIAC CONSULT DATE OF CONSULT Date of Consult DATE: 06/04/18 TIME: 11:40 REASON FOR CONSULT Reason for Consult: Chest pain REFERRING PHYSICIAN Referring Physician: Kamran SOURCE Source: Chart review, Patient HISTORY OF PRESENT ILLNESS HISTORY OF PRESENT ILLNESS This is a 52 yo AA female admitted for complains of abdominal pain, nausea and vomiting. Reports no blood to her vomit but she has been vomiting a lot in the last 3 days. She has been drinking vodka, snorting cocaine, and smoking marijuana and smoking tobacco. She has not taken her BP medication for about 3 months. Reports that she does all these recreational drugs because she said that she likes to democrat. Denies any chest pain, SOA but has been having upper abdominal pain. No recent falls or injury. she did have diarrhea but just 1x. PAST MEDICAL HISTORY Past Medical History Cardiovascular: HTN Pulmonary: COPD CENTRAL NERVOUS SYSTEM: Other (No pertinent history) GI: GERD, C-diff Heme/Onc: No pertinent hx Hepatobiliary: No pertinent hx, Hep A/B/C (C treated with interferon and ribavirin and in 2008 with recheck noted hep C undetectable. ) Psych: Bipolar, Schizophrenia, Polysubstance abuse Musculoskeletal: Other (Sciatica) Rheumatologic: No pertinent hx Infectious disease: No pertinent hx ENT: No pertinent hx Renal/: UTI Endocrine: No pertinent hx Dermatology: No pertinent hx PAST SURGICAL HISTORY Past Surgical History Appendectomy, Cholecystectomy, , Tubal Ligation, Hysterectomy, LHC FAMILY HISTORY Family History: Family History Unknown SOCIAL HISTORY Social History Smoke: 1 pack per day ALCOHOL: heavy (vodka) Drugs: Cocaine, Marijuana Lives: with roommate CURRENT MEDICATIONS CURRENT MEDICATIONS Current Medications Medications (Trade) Dose Ordered Sig/Parisa Route PRN Reason Start Time Stop Time Status Last Admin Dose Admin Sodium Chloride 1,000 ml @ 1,000 mls/hr 1X ONCE IV 06/03/18 17:45 06/03/18 18:44 DC 06/03/18 18:28 Lorazepam (Ativan) 1 mg 1X ONCE IV 06/03/18 17:45 06/03/18 17:54 DC 06/03/18 18:28 Sodium Chloride 500 ml @ 500 mls/hr 1X ONCE IV 06/03/18 19:15 06/03/18 20:14 DC 06/03/18 19:25 Ondansetron HCl (Zofran) 4 mg 1X ONCE IV 06/03/18 19:15 06/03/18 19:16 DC 06/03/18 19:25 Labetalol HCl (Normodyne Iv Push) 20 mg 1X ONCE IVP 06/03/18 20:00 06/03/18 20:01 DC 06/03/18 20:15 Metoclopramide HCl (Reglan Vial) 10 mg 1X ONCE IV 06/03/18 21:00 06/03/18 21:01 DC 06/03/18 22:15 Lorazepam (Ativan) 0.5 mg 1X ONCE IV 06/03/18 21:00 06/03/18 21:01 DC 06/03/18 22:15 Ondansetron HCl (Zofran) 4 mg PRN Q8HRS PRN IV NAUSEA/VOMITING 06/03/18 21:00 06/04/18 07:01 DC 06/04/18 06:07 Nitroglycerin/ Dextrose 250 ml @ 0 mls/hr 1X ONCE IV 06/03/18 23:30 06/03/18 23:31 DC 06/03/18 23:40 Nicardipine HCl 50 mg/Sodium Chloride 270 ml @ 27 mls/hr CONT PRN IV SEE I/O RECORD 06/04/18 06:45 06/04/18 08:15 Multivitamins 10 ml/Thiamine HCl 100 mg/Folic Acid 1 mg/Sodium Chloride 1,011.2 ml @ 100 mls/ hr DAILY IV 06/04/18 10:30 06/08/18 19:07 06/04/18 10:32 Lorazepam (Ativan) 2 mg PRN Q1HR PRN IV For CIWA 8-14 06/04/18 09:30 06/04/18 09:43 Amlodipine Besylate (Norvasc) 10 mg DAILY PO 06/04/18 09:30 06/04/18 10:31 Lidocaine (Lidoderm) 1 patch DAILY TD 06/04/18 10:00 06/04/18 09:43 Ketorolac Tromethamine (Toradol 15mg Vial) 15 mg 1X ONCE IV 06/04/18 10:00 06/04/18 10:01 DC 06/04/18 10:32 ALLERGIES ALLERGIES: Coded Allergies: No Known Drug Allergies (Unverified , 08/29/14) ROS Review of System 14 point ROS evaluated with pertinent positives noted per HPI PHYSICAL EXAM General: Alert, Oriented X3, Cooperative, No acute distress HEENT: Atraumatic, Mucous membr. moist/pink Lungs: Clear to auscultation, Normal air movement Heart: Regular rate (sinus tach), Other (2/6 systolic murmur to apex) Abdomen: Soft, No tenderness Extremities: No cyanosis, No edema Skin: No breakdown, No significant lesion Neuro: Normal speech, Sensation intact Psych/Mental Status: Mental status NL, Mood NL MUSCULOSKELETAL: Osteoarthritic changes both hands VITALS VITALS Vital Signs Date Time Temp Pulse Resp B/P (MAP) Pulse Ox O2 Delivery O2 Flow Rate FiO2 06/04/18 11:37 Room Air 06/04/18 10:33 99.3 127 18 161/86 (111) 96 99.3 LABS Lab: Laboratory Tests Test 06/03/18 17:50 06/03/18 20:30 06/03/18 20:40 06/04/18 08:24 White Blood Count 9.1 x10^3/uL (4.0-11.0) Red Blood Count 4.45 x10^6/uL (3.50-5.40) Hemoglobin 14.8 g/dL (12.0-15.5) Hematocrit 42.3 % (36.0-47.0) Mean Corpuscular Volume 95 fL (79-100) Mean Corpuscular Hemoglobin 33 pg (25-35) Mean Corpuscular Hemoglobin Concent 35 g/dL (31-37) Red Cell Distribution Width 14.4 % (11.5-14.5) Platelet Count 287 x10^3/uL (140-400) Neutrophils (%) (Auto) 54 % (31-73) Lymphocytes (%) (Auto) 37 % (24-48) Monocytes (%) (Auto) 8 % (0-9) Eosinophils (%) (Auto) 1 % (0-3) Basophils (%) (Auto) 0 % (0-3) Neutrophils # (Auto) 4.9 x10^3uL (1.8-7.7) Lymphocytes # (Auto) 3.3 x10^3/uL (1.0-4.8) Monocytes # (Auto) 0.7 x10^3/uL (0.0-1.1) Eosinophils # (Auto) 0.1 x10^3/uL (0.0-0.7) Basophils # (Auto) 0.0 x10^3/uL (0.0-0.2) Prothrombin Time 13.3 SEC (11.7-14.0) Prothromb Time International Ratio 1.1 (0.8-1.1) Activated Partial Thromboplast Time 25 SEC (24-38) Sodium Level 134 mmol/L (136-145) 131 mmol/L (136-145) Potassium Level 3.0 mmol/L (3.5-5.1) 3.5 mmol/L (3.5-5.1) Chloride Level 98 mmol/L (98-107) 96 mmol/L (98-107) Carbon Dioxide Level 18 mmol/L (21-32) 19 mmol/L (21-32) Anion Gap 18 (6-14) 16 (6-14) Blood Urea Nitrogen 10 mg/dL (7-20) 11 mg/dL (7-20) Creatinine 1.0 mg/dL (0.6-1.0) 0.9 mg/dL (0.6-1.0) Estimated GFR (Cockcroft-Gault) 70.5 79.6 BUN/Creatinine Ratio 10 (6-20) Glucose Level 73 mg/dL (70-99) 114 mg/dL (70-99) Calcium Level 9.5 mg/dL (8.5-10.1) 8.8 mg/dL (8.5-10.1) Magnesium Level 2.1 mg/dL (1.8-2.4) Total Bilirubin 0.8 mg/dL (0.2-1.0) Aspartate Amino Transf (AST/SGOT) 31 U/L (15-37) Alanine Aminotransferase (ALT/SGPT) 23 U/L (14-59) Alkaline Phosphatase 92 U/L (46-116) Creatine Kinase 373 U/L (26-192) Creatine Kinase MB (Mass) 3.7 ng/mL (0.0-3.6) Creatine Kinase MB Relative Index 1.0 % (0-4) Troponin I Quantitative < 0.017 ng/mL (0.000-0.055) [id number]-Type Natriuretic Peptide 39 pg/mL (0-124) Total Protein 8.0 g/dL (6.4-8.2) Albumin 4.7 g/dL (3.4-5.0) Albumin/Globulin Ratio 1.4 (1.0-1.7) Lipase 304 U/L (73-393) Ethyl Alcohol Level 113 mg/dL (0-10) Glucose (Fingerstick) 85 mg/dL (70-99) Urine Collection Type Unknown Urine Color Yellow Urine Clarity Clear Urine pH 5.5 Urine Specific [place] 1.015 Urine Protein Negative mg/dL (NEG-TRACE) Urine Glucose (UA) Negative mg/dL (NEG) Urine Ketones (Stick) 15 mg/dL (NEG) Urine Blood Negative (NEG) Urine Nitrite Negative (NEG) Urine Bilirubin Negative (NEG) Urine Urobilinogen Dipstick 0.2 mg/dL (0.2 mg/dL) Urine Leukocyte Esterase Negative (NEG) Urine RBC Occ /HPF (0-2) Urine WBC 5-10 /HPF (0-4) Urine Squamous Epithelial Cells Mod /LPF Urine Bacteria Many /HPF (0-FEW) Urine Cellular Casts Few /HPF Urine Hyaline Casts Many /HPF Urine Granular Casts Few /HPF Urine Opiates Screen Neg (NEG) Urine Methadone Screen Neg (NEG) Urine Barbiturates Neg (NEG) Urine Phencyclidine Screen Neg (NEG) Urine Amphetamine/Methamphetamine Neg (NEG) Urine Benzodiazepines Screen Neg (NEG) Urine Cocaine Screen Pos (NEG) Urine Cannabinoids Screen Pos (NEG) Urine Ethyl Alcohol Pos (NEG) Test 06/04/18 08:29 White Blood Count 8.5 x10^3/uL (4.0-11.0) Red Blood Count 4.22 x10^6/uL (3.50-5.40) Hemoglobin 13.9 g/dL (12.0-15.5) Hematocrit 39.6 % (36.0-47.0) Mean Corpuscular Volume 94 fL (79-100) Mean Corpuscular Hemoglobin 33 pg (25-35) Mean Corpuscular Hemoglobin Concent 35 g/dL (31-37) Red Cell Distribution Width 13.9 % (11.5-14.5) Platelet Count 289 x10^3/uL (140-400) Neutrophils (%) (Auto) 81 % (31-73) Lymphocytes (%) (Auto) 12 % (24-48) Monocytes (%) (Auto) 7 % (0-9) Eosinophils (%) (Auto) 0 % (0-3) Basophils (%) (Auto) 0 % (0-3) Neutrophils # (Auto) 6.9 x10^3uL (1.8-7.7) Lymphocytes # (Auto) 1.0 x10^3/uL (1.0-4.8) Monocytes # (Auto) 0.6 x10^3/uL (0.0-1.1) Eosinophils # (Auto) 0.0 x10^3/uL (0.0-0.7) Basophils # (Auto) 0.0 x10^3/uL (0.0-0.2) ECHOCARDIOGRAM ECHOCARDIOGRAM <Conclusion> The left ventricular systolic function is normal. The Ejection Fraction is 55-60%. There is normal LV segmental wall motion. Transmitral Doppler flow pattern is Grade I-abnormal relaxation pattern. Mild to moderate aortic regurgitation. Mild mitral regurgitation. Trace tricuspid regurgitation. The PA pressure was estimated at 32 mmHg. There is no evidence of significant pericardial effusion. DATE: 01/10/18 0932 HEART CATH HEART CATH FINDINGS 1. The left main coronary artery arose from the left sinus of Valsalva, gave rise to the left anterior descending and left circumflex arteries and did not show any significant stenosis. 2. The left anterior descending artery did not show any significant stenosis. 3. The left circumflex artery did not show any significant stenosis. 4. The right coronary artery was a dominant vessel arising from the right sinus of Valsalva that did not show any significant stenosis. DATE: 03/05/15 1330 ASSESSMENT/PLAN ASSESSMENT/PLAN 1. Malignant HTN: due to substance abuse and noncompliance 2. Atypical chest pain; denies any CP but more of epigastric pain with tenderness with palpation. Doubt ACS, suspect GI and withdrawal 3. Reactive sinus tach: Recent EF and WM nml. This is due to ETOH, cocaine and dehydration 4. Abdominal pain/n/v/d: GI following 5. Poly Substance abuse: cocaine, marijuana, ETOH 6. COPD with Tobaccoism 7. Noncompliance; last use of BP med was 3 months ago. Recommendations 1. Pt is no ready to quit recreational drugs, stating "Id like to democrat" Discussed risks and compliance importance. 2. Titrate off cardene and start norvasc and NTG paste. Labetolol IV PRN 3. Benzodiazepine and ETOH withdrawal protocol per PCP. Maintain IV hydration 4. Supportive care. RYAN ORTIZ UI DEVELOPER Jun 04, 2018 12:10
[2018-06-04] MEDS: NITROGLYCERIN OINT 1 GM PACKET. TP SCH ×2 (12:51→18:00)
[2018-06-04] MEDS: amLODIPine BESYLATE 10 MG TABLET PO SCH (15:44)
[2018-06-04] MEDS ORDERED: PATCH REMOVAL. MC SCH (21:00)
[2018-06-04] MEDS ORDERED: FAMOTIDINE 20 MG/2 ML VIAL IVP SCH (21:00)
[2018-06-05] MEDS: NITROGLYCERIN OINT 1 GM PACKET. TP SCH ×2 (00:08→06:23)
[2018-06-05 03:50] VITALS: BP 102/71
[2018-06-05 07:00] VITALS: BP 102/64
[2018-06-05] MEDS ORDERED: KETOROLAC 30 MG/ML VIAL. IV ONE (07:00)
[2018-06-05] MEDS: LIDOCAINE (700MG/PATCH) PATCH. TD SCH (08:43)
[2018-06-05] MEDS: PROMETHAZINE 12.5 MG TABLET. PO PRN ×2 (09:32→13:14)
[2018-06-05] MEDS: amLODIPine BESYLATE 10 MG TABLET PO SCH (10:06)
--- NOTE | 2018-06-05 10:34 | PDOC ---
PROGRESS NOTES Chief Complaint Chief Complaint acute toxic encephalopathy EtOH withdrawl w. delirium, CIWA, ativan, banana bag, need haldol today accelerated htn, poor control, cardene and nitro gtt, start norvasc 10, try to wean, CCV consult substance abuse poor compliance acute on chronic back pain nausea and vomiting, poor control History of Present Illness History of Present Illness abd pain, anxiety, upset, Vitals Vitals Vital Signs Date Time Temp Pulse Resp B/P (MAP) Pulse Ox O2 Delivery O2 Flow Rate FiO2 06/05/18 10:06 89 102/64 06/05/18 07:00 98.7 18 98 Room Air 98.7 Physical Exam General: Alert, Oriented X3, Cooperative, No acute distress Heart: Regular rate (sinus tach), Other (2/6 systolic murmur to apex) Lungs: Clear Abdomen: Soft, No tenderness Extremities: No cyanosis, No edema Skin: No breakdown, No significant lesion Assessment and Plan Assessmemt and Plan Problems Medical Problems: (1) Abdominal pain Status: Acute (2) Drug use Status: Acute (3) Elevated blood pressure reading Status: Acute (4) Nausea and vomiting Status: Acute Comment Review of Relevant I have reviewed the following items [place] (where applicable) has been applied. Labs Laboratory Tests Test 06/03/18 17:50 06/03/18 20:30 06/03/18 20:40 06/04/18 08:24 White Blood Count 9.1 x10^3/uL (4.0-11.0) Red Blood Count 4.45 x10^6/uL (3.50-5.40) Hemoglobin 14.8 g/dL (12.0-15.5) Hematocrit 42.3 % (36.0-47.0) Mean Corpuscular Volume 95 fL (79-100) Mean Corpuscular Hemoglobin 33 pg (25-35) Mean Corpuscular Hemoglobin Concent 35 g/dL (31-37) Red Cell Distribution Width 14.4 % (11.5-14.5) Platelet Count 287 x10^3/uL (140-400) Neutrophils (%) (Auto) 54 % (31-73) Lymphocytes (%) (Auto) 37 % (24-48) Monocytes (%) (Auto) 8 % (0-9) Eosinophils (%) (Auto) 1 % (0-3) Basophils (%) (Auto) 0 % (0-3) Neutrophils # (Auto) 4.9 x10^3uL (1.8-7.7) Lymphocytes # (Auto) 3.3 x10^3/uL (1.0-4.8) Monocytes # (Auto) 0.7 x10^3/uL (0.0-1.1) Eosinophils # (Auto) 0.1 x10^3/uL (0.0-0.7) Basophils # (Auto) 0.0 x10^3/uL (0.0-0.2) Prothrombin Time 13.3 SEC (11.7-14.0) Prothromb Time International Ratio 1.1 (0.8-1.1) Activated Partial Thromboplast Time 25 SEC (24-38) Sodium Level 134 mmol/L (136-145) 131 mmol/L (136-145) Potassium Level 3.0 mmol/L (3.5-5.1) 3.5 mmol/L (3.5-5.1) Chloride Level 98 mmol/L (98-107) 96 mmol/L (98-107) Carbon Dioxide Level 18 mmol/L (21-32) 19 mmol/L (21-32) Anion Gap 18 (6-14) 16 (6-14) Blood Urea Nitrogen 10 mg/dL (7-20) 11 mg/dL (7-20) Creatinine 1.0 mg/dL (0.6-1.0) 0.9 mg/dL (0.6-1.0) Estimated GFR (Cockcroft-Gault) 70.5 79.6 BUN/Creatinine Ratio 10 (6-20) Glucose Level 73 mg/dL (70-99) 114 mg/dL (70-99) Calcium Level 9.5 mg/dL (8.5-10.1) 8.8 mg/dL (8.5-10.1) Magnesium Level 2.1 mg/dL (1.8-2.4) Total Bilirubin 0.8 mg/dL (0.2-1.0) Aspartate Amino Transf (AST/SGOT) 31 U/L (15-37) Alanine Aminotransferase (ALT/SGPT) 23 U/L (14-59) Alkaline Phosphatase 92 U/L (46-116) Creatine Kinase 373 U/L (26-192) Creatine Kinase MB (Mass) 3.7 ng/mL (0.0-3.6) Creatine Kinase MB Relative Index 1.0 % (0-4) Troponin I Quantitative < 0.017 ng/mL (0.000-0.055) LC-Abr-U-Type Natriuretic Peptide 39 pg/mL (0-124) Total Protein 8.0 g/dL (6.4-8.2) Albumin 4.7 g/dL (3.4-5.0) Albumin/Globulin Ratio 1.4 (1.0-1.7) Lipase 304 U/L (73-393) Ethyl Alcohol Level 113 mg/dL (0-10) Glucose (Fingerstick) 85 mg/dL (70-99) Urine Collection Type Unknown Urine Color Yellow Urine Clarity Clear Urine pH 5.5 Urine Specific [place] 1.015 Urine Protein Negative mg/dL (NEG-TRACE) Urine Glucose (UA) Negative mg/dL (NEG) Urine Ketones (Stick) 15 mg/dL (NEG) Urine Blood Negative (NEG) Urine Nitrite Negative (NEG) Urine Bilirubin Negative (NEG) Urine Urobilinogen Dipstick 0.2 mg/dL (0.2 mg/dL) Urine Leukocyte Esterase Negative (NEG) Urine RBC Occ /HPF (0-2) Urine WBC 5-10 /HPF (0-4) Urine Squamous Epithelial Cells Mod /LPF Urine Bacteria Many /HPF (0-FEW) Urine Cellular Casts Few /HPF Urine Hyaline Casts Many /HPF Urine Granular Casts Few /HPF Urine Opiates Screen Neg (NEG) Urine Methadone Screen Neg (NEG) Urine Barbiturates Neg (NEG) Urine Phencyclidine Screen Neg (NEG) Urine Amphetamine/Methamphetamine Neg (NEG) Urine Benzodiazepines Screen Neg (NEG) Urine Cocaine Screen Pos (NEG) Urine Cannabinoids Screen Pos (NEG) Urine Ethyl Alcohol Pos (NEG) Test 06/04/18 08:29 White Blood Count 8.5 x10^3/uL (4.0-11.0) Red Blood Count 4.22 x10^6/uL (3.50-5.40) Hemoglobin 13.9 g/dL (12.0-15.5) Hematocrit 39.6 % (36.0-47.0) Mean Corpuscular Volume 94 fL (79-100) Mean Corpuscular Hemoglobin 33 pg (25-35) Mean Corpuscular Hemoglobin Concent 35 g/dL (31-37) Red Cell Distribution Width 13.9 % (11.5-14.5) Platelet Count 289 x10^3/uL (140-400) Neutrophils (%) (Auto) 81 % (31-73) Lymphocytes (%) (Auto) 12 % (24-48) Monocytes (%) (Auto) 7 % (0-9) Eosinophils (%) (Auto) 0 % (0-3) Basophils (%) (Auto) 0 % (0-3) Neutrophils # (Auto) 6.9 x10^3uL (1.8-7.7) Lymphocytes # (Auto) 1.0 x10^3/uL (1.0-4.8) Monocytes # (Auto) 0.6 x10^3/uL (0.0-1.1) Eosinophils # (Auto) 0.0 x10^3/uL (0.0-0.7) Basophils # (Auto) 0.0 x10^3/uL (0.0-0.2) Medications Current Medications Sodium Chloride 1,000 ml @ 1,000 mls/hr 1X ONCE IV Last administered on at 18:28; Start 06/03/18 at 17:45; Stop 06/03/18 at 18:44; Status DC Lorazepam (Ativan) 1 mg 1X ONCE IV Last administered on 06/03/18at 18:28; Start 06/03/18 at 17:45; Stop 06/03/18 at 17:54; Status DC Potassium Chloride (Klor-Con) 40 meq 1X ONCE PO ; Start 06/03/18 at 18:45; Stop 06/03/18 at 18:46; Status DC Sodium Chloride 500 ml @ 500 mls/hr 1X ONCE IV Last administered on 06/03/18at 19:25; Start 06/03/18 at 19:15; Stop 06/03/18 at 20:14; Status DC Ondansetron HCl (Zofran) 4 mg 1X ONCE IV Last administered on 06/03/18at 19:25; Start 06/03/18 at 19:15; Stop 06/03/18 at 19:16; Status DC Labetalol HCl (Normodyne Iv Push) 20 mg 1X ONCE IVP Last administered on at 20:15; Start 06/03/18 at 20:00; Stop 06/03/18 at 20:01; Status DC Metoclopramide HCl (Reglan Vial) 10 mg 1X ONCE IV Last administered on at 22:15; Start 06/03/18 at 21:00; Stop 06/03/18 at 21:01; Status DC Lorazepam (Ativan) 0.5 mg 1X ONCE IV Last administered on 06/03/18at 22:15; Start 06/03/18 at 21:00; Stop 06/03/18 at 21:01; Status DC Ondansetron HCl (Zofran) 4 mg PRN Q8HRS PRN IV NAUSEA/VOMITING Last administered on 06/04/18at 06:07; Start 06/03/18 at 21:00; Stop 06/04/18 at 07:01; Status DC Nitroglycerin/ Dextrose 250 ml @ 0 mls/hr 1X ONCE IV Last administered on at 23:40; Start 06/03/18 at 23:30; Stop 06/03/18 at 23:31; Status DC Nitroglycerin/ Dextrose 250 ml @ 1.5 mls/hr CONT PRN IV SEE I/O RECORD; Start 06/03/18 at 23:45; Stop 06/04/18 at 12:07; Status DC Nicardipine HCl 50 mg/Sodium Chloride 270 ml @ 27 mls/hr CONT PRN IV SEE I/O RECORD Last administered on 06/04/18at 08:15; Start 06/04/18 at 06:45 Ondansetron HCl (Zofran) 4 mg PRN Q6HRS PRN IV NAUSEA/VOMITING; Start 06/04/18 at 07:15; Stop 06/04/18 at 09:17; Status DC Prochlorperazine Edisylate (Compazine) 10 mg PRN Q6HRS PRN IV NAUSEA/VOMITING, 2ND CHOICE; Start 06/04/18 at 09:15 Promethazine HCl (Phenergan) 12.5 mg PRN Q6HRS PRN PO NAUSEA/VOMITING Last administered on 06/05/18at 09:32; Start 06/04/18 at 09:15 Promethazine HCl (Phenergan Im) 25 mg 1X ONCE IM ; Start 06/04/18 at 09:30; Stop 06/04/18 at 09:31; Status DC Ondansetron HCl (Zofran) 8 mg PRN Q8HRS PRN IV NAUSEA/VOMITING, 1ST CHOICE; Start 06/04/18 at 09:30 Multivitamins 10 ml/Thiamine HCl 100 mg/Folic Acid 1 mg/Sodium Chloride 1,011.2 ml @ 100 mls/ hr DAILY IV Last administered on 06/04/18at 10:32; Start 06/04/18 at 10:30; Stop 06/08/18 at 19:07 Lorazepam (Ativan) 2 mg PRN Q1HR PRN IV For CIWA 8-14 Last administered on at 08:44; Start 06/04/18 at 09:30 Lorazepam (Ativan) 4 mg PRN Q1HR PRN IV For CIWA 15 or greater; Start 06/04/18 at 09:30 Aspirin (Georgina Aspirin) 325 mg PRN BID PRN PO PAIN; Start 06/04/18 at 09:30 Amlodipine Besylate (Norvasc) 10 mg DAILY PO Last administered on 06/04/18at 10: 31; Start 06/04/18 at 09:30; Stop 06/04/18 at 15:51; Status DC Lidocaine (Lidoderm) 1 patch DAILY TD Last administered on 06/05/18at 08:43; Start 06/04/18 at 10:00 Miscellaneous (Lidoderm Patch Removal) 1 ea QHS MC Last administered on at 20:45; Start 06/04/18 at 21:00 Ketorolac Tromethamine (Toradol 15mg Vial) 15 mg 1X ONCE IV Last administered on 06/04/18at 10:32; Start 06/04/18 at 10:00; Stop 06/04/18 at 10:01; Status DC Famotidine (Pepcid Vial) 20 mg QHS IVP Last administered on 06/04/18at 20:45; Start 06/04/18 at 21:00 Amlodipine Besylate (Norvasc) 10 mg DAILY PO ; Start 06/04/18 at 13:00 Nitroglycerin (Nitro-Bid Oint) 1 inch Q6HRS TP Last administered on 06/04/18at 12 :51; Start 06/04/18 at 13:00 Labetalol HCl (Normodyne Iv Push) 20 mg PRN Q2HR PRN IVP HYPERTENSION, SEE COMMENTS; Start 06/04/18 at 12:00 Ketorolac Tromethamine (Toradol 30mg Vial) 30 mg 1X ONCE IV Last administered on 06/05/18at 06:47; Start 06/05/18 at 07:00; Stop 06/05/18 at 07:01; Status DC Active Scripts Active Aspirin 325 Mg Tablet 1 Tab PO BID PRN Norvasc (Amlodipine Besylate) 5 Mg Tablet 1 Tab PO DAILY Zofran Odt (Ondansetron) 4 Mg Tab.rapdis 1 Tab SL Q4HRS PRN Promethazine Hcl 25 Mg Tablet 1 Tab PO PRN Q6HRS Vitals/I & O Vital Sign - Last 24 Hours 06/04/18 06/04/18 06/04/18 06/04/18 10:45 11:00 11:30 11:37 Pulse 128 126 128 B/P (MAP) 147/75 (99) 157/87 (110) 145/82 (103) O2 Delivery Room Air 06/04/18 06/04/18 06/04/18 06/04/18 12:00 12:30 12:51 13:00 Pulse 122 122 110 B/P (MAP) 149/74 (99) 150/84 (106) 150/84 110/60 (77) 06/04/18 06/04/18 06/04/18 06/04/18 13:30 14:30 15:00 15:44 Temp 99.2 99.2 Pulse 110 118 102 Resp 22 B/P (MAP) 126/72 (90) 112/70 (84) 100/55 (70) 100/55 Pulse Ox 100 O2 Delivery Room Air 06/04/18 06/04/18 06/04/18 06/04/18 16:00 18:00 19:00 19:20 Temp 98.8 98.8 Pulse 102 99 100 Resp 18 B/P (MAP) 132/76 (94) 109/61 109/61 (77) Pulse Ox 99 O2 Delivery Room Air Room Air 06/04/18 06/05/18 06/05/18 06/05/18 22:50 00:08 03:50 07:00 Temp 98.4 97.8 98.7 98.4 97.8 98.7 Pulse 92 100 88 89 Resp 18 B/P (MAP) 103/66 (78) 103/66 102/71 (81) 102/64 (77) Pulse Ox 98 98 98 O2 Delivery Room Air Room Air Room Air 06/05/18 10:06 Pulse 89 B/P (MAP) 102/64 Intake and Output 06/04/18 06/04/18 06/05/18 15:00 23:00 07:00 Intake Total 480 ml Output Total 350 ml Balance -350 ml 480 ml GUILLERMO MUNOZ MD Jun 05, 2018 10:34
[2018-06-05] MEDS ORDERED: HALOPERIDOL LACTATE 5 MG/ML VIAL. IVP PRN (10:45)
[2018-06-05 11:45] VITALS: BP 107/75
[2018-06-05] MEDS ORDERED: PROM25TA10 PO (12:24)
[2018-06-05] MEDS ORDERED: ONDA4TAB10 SL (12:24)
--- NOTE | 2018-06-05 12:26 | PDOC3 ---
Discharge Summary Visit Information Date of Admission: Jun 03, 2018 Date of Discharge: Jun 05, 2018 Admitting Diagnosis: confusion Final Diagnosis acute toxic encephalopathy EtOH withdrawl w. delirium, ativan, banana bag, accelerated htn, poor control, substance abuse poor compliance acute on chronic back pain nausea and vomiting, poor control Problems Medical Problems: (1) Abdominal pain Status: Acute (2) Drug use Status: Acute (3) Elevated blood pressure reading Status: Acute (4) Nausea and vomiting Status: Acute Brief Hospital Course Allergies Allergies Coded Allergies Type Severity Reaction Last Updated Verified No Known Drug Allergies 08/29/14 No Vital Signs Vital Signs Date Time Temp Pulse Resp B/P (MAP) Pulse Ox O2 Delivery O2 Flow Rate FiO2 06/05/18 10:06 89 102/64 06/05/18 08:00 Room Air 06/05/18 07:00 98.7 18 98 98.7 Lab Results Laboratory Tests Test 06/03/18 17:50 06/03/18 20:30 06/03/18 20:40 06/04/18 08:24 White Blood Count 9.1 x10^3/uL (4.0-11.0) Red Blood Count 4.45 x10^6/uL (3.50-5.40) Hemoglobin 14.8 g/dL (12.0-15.5) Hematocrit 42.3 % (36.0-47.0) Mean Corpuscular Volume 95 fL (79-100) Mean Corpuscular Hemoglobin 33 pg (25-35) Mean Corpuscular Hemoglobin Concent 35 g/dL (31-37) Red Cell Distribution Width 14.4 % (11.5-14.5) Platelet Count 287 x10^3/uL (140-400) Neutrophils (%) (Auto) 54 % (31-73) Lymphocytes (%) (Auto) 37 % (24-48) Monocytes (%) (Auto) 8 % (0-9) Eosinophils (%) (Auto) 1 % (0-3) Basophils (%) (Auto) 0 % (0-3) Neutrophils # (Auto) 4.9 x10^3uL (1.8-7.7) Lymphocytes # (Auto) 3.3 x10^3/uL (1.0-4.8) Monocytes # (Auto) 0.7 x10^3/uL (0.0-1.1) Eosinophils # (Auto) 0.1 x10^3/uL (0.0-0.7) Basophils # (Auto) 0.0 x10^3/uL (0.0-0.2) Prothrombin Time 13.3 SEC (11.7-14.0) Prothromb Time International Ratio 1.1 (0.8-1.1) Activated Partial Thromboplast Time 25 SEC (24-38) Sodium Level 134 mmol/L (136-145) 131 mmol/L (136-145) Potassium Level 3.0 mmol/L (3.5-5.1) 3.5 mmol/L (3.5-5.1) Chloride Level 98 mmol/L (98-107) 96 mmol/L (98-107) Carbon Dioxide Level 18 mmol/L (21-32) 19 mmol/L (21-32) Anion Gap 18 (6-14) 16 (6-14) Blood Urea Nitrogen 10 mg/dL (7-20) 11 mg/dL (7-20) Creatinine 1.0 mg/dL (0.6-1.0) 0.9 mg/dL (0.6-1.0) Estimated GFR (Cockcroft-Gault) 70.5 79.6 BUN/Creatinine Ratio 10 (6-20) Glucose Level 73 mg/dL (70-99) 114 mg/dL (70-99) Calcium Level 9.5 mg/dL (8.5-10.1) 8.8 mg/dL (8.5-10.1) Magnesium Level 2.1 mg/dL (1.8-2.4) Total Bilirubin 0.8 mg/dL (0.2-1.0) Aspartate Amino Transf (AST/SGOT) 31 U/L (15-37) Alanine Aminotransferase (ALT/SGPT) 23 U/L (14-59) Alkaline Phosphatase 92 U/L (46-116) Creatine Kinase 373 U/L (26-192) Creatine Kinase MB (Mass) 3.7 ng/mL (0.0-3.6) Creatine Kinase MB Relative Index 1.0 % (0-4) Troponin I Quantitative < 0.017 ng/mL (0.000-0.055) GH-Mwx-O-Type Natriuretic Peptide 39 pg/mL (0-124) Total Protein 8.0 g/dL (6.4-8.2) Albumin 4.7 g/dL (3.4-5.0) Albumin/Globulin Ratio 1.4 (1.0-1.7) Lipase 304 U/L (73-393) Ethyl Alcohol Level 113 mg/dL (0-10) Glucose (Fingerstick) 85 mg/dL (70-99) Urine Collection Type Unknown Urine Color Yellow Urine Clarity Clear Urine pH 5.5 Urine Specific Cameron 1.015 Urine Protein Negative mg/dL (NEG-TRACE) Urine Glucose (UA) Negative mg/dL (NEG) Urine Ketones (Stick) 15 mg/dL (NEG) Urine Blood Negative (NEG) Urine Nitrite Negative (NEG) Urine Bilirubin Negative (NEG) Urine Urobilinogen Dipstick 0.2 mg/dL (0.2 mg/dL) Urine Leukocyte Esterase Negative (NEG) Urine RBC Occ /HPF (0-2) Urine WBC 5-10 /HPF (0-4) Urine Squamous Epithelial Cells Mod /LPF Urine Bacteria Many /HPF (0-FEW) Urine Cellular Casts Few /HPF Urine Hyaline Casts Many /HPF Urine Granular Casts Few /HPF Urine Opiates Screen Neg (NEG) Urine Methadone Screen Neg (NEG) Urine Barbiturates Neg (NEG) Urine Phencyclidine Screen Neg (NEG) Urine Amphetamine/Methamphetamine Neg (NEG) Urine Benzodiazepines Screen Neg (NEG) Urine Cocaine Screen Pos (NEG) Urine Cannabinoids Screen Pos (NEG) Urine Ethyl Alcohol Pos (NEG) Test 06/04/18 08:29 White Blood Count 8.5 x10^3/uL (4.0-11.0) Red Blood Count 4.22 x10^6/uL (3.50-5.40) Hemoglobin 13.9 g/dL (12.0-15.5) Hematocrit 39.6 % (36.0-47.0) Mean Corpuscular Volume 94 fL (79-100) Mean Corpuscular Hemoglobin 33 pg (25-35) Mean Corpuscular Hemoglobin Concent 35 g/dL (31-37) Red Cell Distribution Width 13.9 % (11.5-14.5) Platelet Count 289 x10^3/uL (140-400) Neutrophils (%) (Auto) 81 % (31-73) Lymphocytes (%) (Auto) 12 % (24-48) Monocytes (%) (Auto) 7 % (0-9) Eosinophils (%) (Auto) 0 % (0-3) Basophils (%) (Auto) 0 % (0-3) Neutrophils # (Auto) 6.9 x10^3uL (1.8-7.7) Lymphocytes # (Auto) 1.0 x10^3/uL (1.0-4.8) Monocytes # (Auto) 0.6 x10^3/uL (0.0-1.1) Eosinophils # (Auto) 0.0 x10^3/uL (0.0-0.7) Basophils # (Auto) 0.0 x10^3/uL (0.0-0.2) Brief Hospital Course Ms. Mesa is a 52 old with med noncompliance, not taking home meds, came in on THC, cocaine, EtOH, abd pain, withdrawl and delirium, abd pain, she had very poor insight into her med problems, was upset when I asked her to remain sober. difficult patient, Discharge Information Condition at Discharge: Improved Follow Up: Weeks Disposition/Orders: D/C to Home Scheduled Amlodipine Besylate (Norvasc) 5 Mg Tablet, 1 TAB PO DAILY, #30 Ref 0 Prescribed by: MARII KRAUSE MD on 01/11/18 1226 Promethazine Hcl (Promethazine Hcl) 25 Mg Tablet, 1 TAB PO PRN Q6HRS, #20 Prescribed by: GUILLERMO MUNOZ on 06/05/18 1224 Scheduled PRN Aspirin (Aspirin) 325 Mg Tablet, 1 TAB PO BID PRN for PAIN, #30 Ref 0 Prescribed by: Liseth Daniel APRN on 05/24/18 2253 Last Action: Continued on 06/04/18 0920 by GUILLERMO MUNOZ Ondansetron (Zofran Odt) 4 Mg Tab.rapdis, 1 TAB SL Q4HRS PRN for VOMITING, #18 Prescribed by: GUILLERMO MUNOZ on 06/05/18 1224 Discontinued Medications Amlodipine Besylate (Norvasc) 5 Mg Tablet, 1 TAB PO DAILY, #30 Ref 0 Prescribed by: RAISA BAUM APRN on 06/03/182013 Patient Instructions Patient Instructions > 30 min noncompliance she told me "if I want to tie one on, I will tie one on" when I was trying to promote sobriety. precontemplation on sobriety GUILLERMO MUNOZ MD Jun 05, 2018 12:26
--- NOTE | 2018-06-05 12:30 | PDOC ---
CARDIO Progress Notes Date and Time Date of Service 06/05/2018 Time of Evaluation 1220 Subjective Subjective: No Chest Pain, No shortness of breath, No Palpitations, Other ( wanting to go home. ) Vitals Vitals Vital Signs Date Time Temp Pulse Resp B/P (MAP) Pulse Ox O2 Delivery O2 Flow Rate FiO2 06/05/18 10:06 89 102/64 06/05/18 08:00 Room Air 06/05/18 07:00 98.7 18 98 98.7 Weight Weight [ ] Input and Output Intake and Output Intake and Output 06/05/18 07:00 Intake Total 480 ml Output Total 350 ml Balance 130 ml Intake Oral 480 ml Output Urine Total 350 ml # Voids 3 Physical Exam HEENT: Neck Supple W Full Motion Chest: Symmetric LUNGS: Clear to Auscultation Heart: S1S2, RRR (SR no significant ectopies) Abdomen: Soft N/T Extremities: No Calf Tenderness Neurology: alert, oriented, follow commands, other (irritable) Assessment Assessment 1. 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 Now controlled 2. Atypical chest pain; suspect GI and withdrawal 3. Reactive sinus tach: resolved 4. Abdominal pain/n/v/d: better, GI following 5. Poly Substance abuse: cocaine, marijuana, ETOH 6. COPD with Tobaccoism 7. Noncompliance; last use of BP med was 3 months ago. Recommendations 1. Pt not ready to quit ETOH and cocaine. stating "I will alliance party when I want to alliance party" reinforced compliance but refused 2. Continue with BP regimen if pt complies. Will sign off. RYAN ORTIZ APRN Jun 05, 2018 12:30
--- NOTE | 2018-06-05 13:12 | PDOC ---
Subjective: Subjective: "I'm not worried about the pain, I'm just worried about nausea but can I have another pain shot before I leave?" Objective: Objective: D/w RN - rude to staff, wants to leave, etc. Has DC orders. Vital Signs: Vital Signs Date Time Temp Pulse Resp B/P (MAP) Pulse Ox O2 Delivery O2 Flow Rate FiO2 06/05/18 11:45 98.1 84 18 107/75 (86) 100 Room Air 98.1 PE: GEN: NAD, talking on the phone LUNGS: room air NEURO/PSYCH: A & O 3, tearful A/P: Substance abuse, non-compliance Recurrent n/v, abd pain, diarrhea - improved -- GES results pending but tolerating PO w/ improvement in symptoms. Okay to DC per GI - she's moving to [place], [place] and is anxious to leave today because she has a moving truck paid for - she will follow-up re: GES results via phone - d/w RN. Should continue PPI, issues w/ compliance in the past. RADHA ZIMMER Jun 05, 2018 13:12
--- NOTE | 2018-06-05 15:36 | RAD ---
Radionuclide gastric emptying study, 06/05/2018: HISTORY: Nausea and vomiting The study was performed utilizing a solid test meal radiolabeled with 2.2 mCi of technetium 99m sulfur colloid. The following gastric retention values were obtained: 1 hour-69 percent 2 hours-7 percent 3 hours-4 percent 4 hours-1 percent IMPRESSION: Normal gastric imaging study Electronically signed by: Rolando Diaz MD (06/05/2018 3:33 PM) [facility]
== END 2018-06-05 13:32 | disposition home or self-care (01) | DRG 896 ==
LOC: ER 17:27 → 6 SOUTH 20:37 → 2 NORTH 23:17
PROVIDERS: ADMIT Internal Medicine; ATTEND Internal Medicine
DX: F10.231 Alcohol dependence with withdrawal delirium (principal); G92 Toxic encephalopathy; F14.10 Cocaine abuse, uncomplicated; I10 Essential (primary) hypertension; E86.0 Dehydration; F12.10 Cannabis abuse, uncomplicated; F17.210 Nicotine dependence, cigarettes, uncomplicated; F20.9 Schizophrenia, unspecified; F31.9 Bipolar disorder, unspecified; F41.9 Anxiety disorder, unspecified; G89.29 Other chronic pain; J44.9 Chronic obstructive pulmonary disease, unspecified; K21.9 Gastro-esophageal reflux disease without esophagitis; M54.9 Dorsalgia, unspecified; R07.89 Other chest pain; Y90.5 Blood alcohol level of 100-119 mg/100 ml; K29.50 Unspecified chronic gastritis without bleeding; Z90.49 Acquired absence of other specified parts of digestive tract; Z90.710 Acquired absence of both cervix and uterus; Z91.14 Patient's other noncompliance with medication regimen; Z91.19 Patient's noncompliance with other medical treatment and regimen; Z87.440 Personal history of urinary (tract) infections; Z98.51 Tubal ligation status; Z79.82 Long term (current) use of aspirin; Z79.899 Other long term (current) drug therapy; Z86.010 Personal history of colon polyps
CPT/HCPCS: 36415; 78264; 80048; 80053; 80307; 81001; 82553; 82962; 83690; 83735; 83880; 84484; 85025; 85610; 85730; 87086; 93005; 96361; 96374; 96375; 96376; A9541; G0480; J1885; J2060; J2405; J2765; J3490; J7030; J7040; J7050; Q0169; S0028; 99285-25; G0479

== ENCOUNTER 2020-03-09 07:49 | Emergency (ER) | payer OTHER, MEDICAID ==
[~2020-03-09] VITALS: Ht 165.1 cm; Wt 80.0 kg
[~2020-03-09 07:49] MED LIST changes: +METR-34 PO; -METR500T8 PO
[2020-03-09] MEDS ORDERED: METOCLOPRAMIDE HCL 10 MG/2 ML VIAL. IVP ONE (08:15)
[2020-03-09] MEDS ORDERED: MORPHINE SULFATE 4 MG/ML VIAL. IV ONE (08:15)
[2020-03-09 08:17] LABS: BASO # 0.1 x10^3/uL (0.0-0.2); BASO % 1 % (0-3); EOS % 0 % (0-3); HEMATOCRIT 48.2 % (36.0-47.0); HEMOGLOBIN 17.2 g/dL (12.0-15.5); LYMPH # 1.1 x10^3/uL (1.0-4.8); LYMPH % 7 % (24-48); MEAN CORPUSCULAR HEMOGLOBIN 34 pg (25-35); MEAN CORPUSCULAR HGB CONC 36 g/dL (31-37); MEAN CORPUSCULAR VOLUME 95 fL (79-100); MONO # 0.4 x10^3/uL (0.0-1.1); MONO % 3 % (0-9); NEUT # 13.3 x10^3/uL (1.8-7.7); NEUT % 89 % (31-73); PLATELET COUNT 382 x10^3/uL (140-400); RED CELL DISTRIBUTION WIDTH 14.9 % (11.5-14.5); WHITE BLOOD COUNT 14.9 x10^3/uL (4.0-11.0)
[2020-03-09 08:24] LABS: CREATININE 1.2 mg/dL (0.6-1.0); GFR 56.6; POTASSIUM 3.4 mmol/L (3.5-5.1)
[2020-03-09 08:28] LABS: PROTHROMBIN TIME PATIENT 13.3 SEC (11.7-14.0)
[2020-03-09 08:29] LABS: ALBUMIN 5.4 g/dL (3.4-5.0); ALBUMIN/GLOBULIN RATIO 1.3 (1.0-1.7); MAGNESIUM 1.6 mg/dL (1.8-2.4); TOTAL PROTEIN 9.5 g/dL (6.4-8.2)
[2020-03-09] MEDS ORDERED: IV NORMAL SALINE 1000ML BAG 1,000 ML IV ONE (08:30)
--- NOTE | 2020-03-09 08:30 | PHYS DOC ---
Past Medical History Past Medical History: Other Additional Past Medical Histor: colitis, borderline HTN Past Surgical History: Appendectomy, Cholecystectomy, Hysterectomy, Tubal ligation Smoking Status: Current Every Day Smoker Alcohol Use: Heavy Drug Use: Cocaine, Marijuana General Adult EDM: Chief Complaint: ABDOMINAL PAIN HPI: HPI: Patient is a 54 year old female who presented to ER today for evaluation of abdominal pain, nausea, vomiting, diarrhea about 2 days ago. Patient denies any fever, no blood in stool. Patient had the same type of symptom in October, she was admitted to hospital in [facility], had EGD and colonoscopy done and did not find anything wrong with her. Patient do have history hypertension, she is on medication for it. Patient has history of hysterectomy, cholecystectomy, appendectomy. Review of Systems: Review of Systems: Constitutional: Denies fever or chills. [] Eyes: Denies change in visual acuity. [] HENT: Denies nasal congestion or sore throat. [] Respiratory: Denies cough or shortness of breath. [] Cardiovascular: Denies chest pain or edema. [] GI: Positive for abdominal pain, nausea, vomiting, diarrhea. [] : Denies dysuria. [] Musculoskeletal: Denies back pain or joint pain. [] Integument: Denies rash. [] Neurologic: Denies headache, focal weakness or sensory changes. [] Endocrine: Denies polyuria or polydipsia. [] Lymphatic: Denies swollen glands. [] Psychiatric: Denies depression or anxiety. [] Heart Score: Risk Factors: Risk Factors: DM, Current or recent (<one month) smoker, HTN, HLP, family history of CAD, obesity. Risk Scores: Score 0 - 3: 2.5% MACE over next 6 weeks - Discharge Home Score 4 - 6: 20.3% MACE over next 6 weeks - Admit for Clinical Observation Score 7 - 10: 72.7% MACE over next 6 weeks - Early Invasive Strategies Current Medications: Current Medications Medications (Trade) Dose Ordered Sig/Parisa Start Time Stop Time Status Last Admin Dose Admin Metoclopramide HCl (Reglan Vial) 10 mg 1X ONCE 03/09/20 08:15 03/09/20 08:16 DC 03/09/20 08:19 10 MG Morphine Sulfate (Morphine Sulfate) 4 mg 1X ONCE 03/09/20 08:15 03/09/20 08:16 DC 03/09/20 08:19 4 MG Sodium Chloride 1,000 ml @ 1,000 mls/hr 1X ONCE 03/09/20 08:30 03/09/20 09:29 Allergies: Allergies: Allergies Coded Allergies Type Severity Reaction Last Updated Verified No Known Drug Allergies 08/29/14 No Physical Exam: PE: Constitutional: Well developed, well nourished, no acute distress, non-toxic appearance. [] HENT: Normocephalic, atraumatic, bilateral external ears normal, oropharynx moist, no oral exudates, nose normal. [] Eyes: PERRLA, EOMI, conjunctiva normal, no discharge. [] Neck: Normal range of motion, no tenderness, supple, no stridor. [] Cardiovascular: Sinus tachycardia, regular rhythm, no murmur [] Lungs & Thorax: Bilateral breath sounds clear to auscultation [] Abdomen: Bowel sounds normal, soft, There is tenderness diffusely, no masses, no pulsatile masses. [] Skin: Warm, dry, no erythema, no rash. [] Back: No tenderness, no CVA tenderness. [] Extremities: No tenderness, no cyanosis, no clubbing, ROM intact, no edema. [] Neurologic: Alert and oriented X 3, normal motor function, normal sensory function, no focal deficits noted. [] Psychologic: Affect normal, judgement normal, mood normal. [] Current Patient Data: Labs: Laboratory Tests Test 03/09/20 08:01 Sodium Level 136 mmol/L (136-145) Potassium Level 3.4 mmol/L (3.5-5.1) L Chloride Level 92 mmol/L (98-107) L Carbon Dioxide Level 20 mmol/L (21-32) L Anion Gap 24 (6-14) H Blood Urea Nitrogen 9 mg/dL (7-20) Creatinine 1.2 mg/dL (0.6-1.0) H Estimated GFR (Cockcroft-Gault) 56.6 BUN/Creatinine Ratio 8 (6-20) Glucose Level 223 mg/dL (70-99) H Calcium Level 10.0 mg/dL (8.5-10.1) Magnesium Level Pending Total Bilirubin Pending Aspartate Amino Transferase (AST) Pending Alanine Aminotransferase (ALT) Pending Alkaline Phosphatase Pending Total Protein Pending Albumin Pending Albumin/Globulin Ratio Pending Lipase Pending Laboratory Tests 03/09/20 08:01 Vital Signs: Vital Signs Date Time Temp Pulse Resp B/P (MAP) Pulse Ox O2 Delivery O2 Flow Rate FiO2 03/09/20 08:19 20 100 Room Air 03/09/20 07:50 99.4 165 253/148 (183) 99.4 EKG: EKG: [] Radiology/Procedures: Radiology/Procedures: [][facility] [address] [place] [address] IMAGING REPORT Signed PATIENT: NANCY GASTELUM DACCOUNT: [id number] : 1965 LOCATION: ER AGE: 54 SEX: F EXAM STATUS: REG ER ORD. PHYSICIAN: PRAVIN PROCTOR DO REASON: abdominal pain, nausea, vomiting PROCEDURE: CT ABDOMEN PELVIS WO CONTRAST Examination: CT ABDOMEN PELVIS WO CONTRAST History: Reason: abdominal pain, nausea, vomiting / Comparison/Correlation: 01/09/2018 CT abdomen with contrast Findings: Axial images of the abdomen and pelvis were obtained without contrast. Sagittal and coronal reformatted images were provided. The lung bases are clear. Liver, spleen, pancreas, adrenal glands, and kidneys are unremarkable. No radiopaque collecting system calculi. No collecting system obstruction identified. Cholecystectomy noted. No enlarged abdominal or pelvic lymph nodes. No ascites or pelvic free fluid. Circumferential wall thickening of the very proximal jejunum is noted without surrounding inflammatory change. No extraluminal gas. Urinary bladder is unremarkable. Mild diverticulosis of the colon is evident. No inflammatory findings identified. Appendectomy noted. Concentric disc bulge is present at L2-3. Mild concentric disc bulge at L3-4 is present. Moderate L4-5 spinal canal stenosis due to concentric disc bulge and ligamentum flavum hypertrophy is noted. Impression: Mild diverticulosis. No acute inflammatory findings. No radiopaque collecting system calculi or evidence of collecting system obstruction. Surgical wall thickening of the proximal jejunum which probably represents contraction is present. No inflammatory findings. PQRS Compliance Statement: One or more of the following individualized dose reduction techniques were utilized for this examination: 1. Automated exposure control 2. Adjustment of the mA and/or kV according to patient size 3. Use of iterative reconstruction technique Electronically signed by: Rosalino Field MD (03/09/2020 9:05 AM) [id number] DICTATED and SIGNED BY: ROSALINO FIELD MD DATE: 03/09/20904 Course & Med Decision Making: Course & Med Decision Making Pertinent Labs and Imaging studies reviewed. (See chart for details) Patient is a 54-year-old female who was evaluated in ER due to abdominal pain, nausea vomiting, work-up did not show any acute problem. Patient will be discharged home. Patient feels much better now. Dragon Disclaimer: Dragon Disclaimer: This electronic medical record was generated, in whole or in part, using a voice recognition dictation system. Departure Departure Impression: Primary Impression: Gastroenteritis Disposition: HOME, SELF-CARE Condition: IMPROVED Patient Instructions: Viral Gastroenteritis Additional Instructions: Thank you for visiting our Emergency Department. We appreciate you trusting us with your care. If any additional problems come up don't hesitate to return to visit us. Please follow up with your primary care provider so they can plan additional care if needed and know about the problem that you had. If symptoms worsen come back to the Emergency Department. Any concerning symptoms that start such as chest pain, shortness of air, weakness or numbness on one side of the body, running high fevers or any other concerning symptoms return to the ER. Scripts Ondansetron Hcl (ZOFRAN) 4 Mg Tablet 1 TAB PO PRN Q6-8HRS, #15 TAB Prov: PRAVIN PROCTOR DO 03/09/20 Justicifation of Admission Dx: Justifications for Admission: Justification of Admission Dx: N/A PRAVIN PROCTOR DO Mar 09, 2020 08:30
[2020-03-09 08:34] VITALS: BP 178/106
--- NOTE | 2020-03-09 09:08 | RAD ---
Examination: CT ABDOMEN PELVIS WO CONTRAST History: Reason: abdominal pain, nausea, vomiting / Comparison/Correlation: 01/09/2018 CT abdomen with contrast Findings: Axial images of the abdomen and pelvis were obtained without contrast. Sagittal and coronal reformatted images were provided. The lung bases are clear. Liver, spleen, pancreas, adrenal glands, and kidneys are unremarkable. No radiopaque collecting system calculi. No collecting system obstruction identified. Cholecystectomy noted. No enlarged abdominal or pelvic lymph nodes. No ascites or pelvic free fluid. Circumferential wall thickening of the very proximal jejunum is noted without surrounding inflammatory change. No extraluminal gas. Urinary bladder is unremarkable. Mild diverticulosis of the colon is evident. No inflammatory findings identified. Appendectomy noted. Concentric disc bulge is present at L2-3. Mild concentric disc bulge at L3-4 is present. Moderate L4-5 spinal canal stenosis due to concentric disc bulge and ligamentum flavum hypertrophy is noted. Impression: Mild diverticulosis. No acute inflammatory findings. No radiopaque collecting system calculi or evidence of collecting system obstruction. Surgical wall thickening of the proximal jejunum which probably represents contraction is present. No inflammatory findings. PQRS Compliance Statement: One or more of the following individualized dose reduction techniques were utilized for this examination: 1. Automated exposure control 2. Adjustment of the mA and/or kV according to patient size 3. Use of iterative reconstruction technique Electronically signed by: Rosalino Sampson MD (03/09/2020 9:05 AM) [id number]
[2020-03-09 10:18] LABS: BILIRUBIN,URINE SMALL (NEG); CLARITY,URINE CLEAR; COLOR,URINE AMBER; NITRITE,URINE NEGATIVE (NEG); PROTEIN,URINE >=300 mg/dL (NEG-TRACE); UROBILINOGEN,URINE 0.2 mg/dL (0.2 mg/dL)
[2020-03-09 10:23] LABS: % LYMPHS 16 % (24-48); % MONOS 2 % (0-10); % SEGS 82 % (35-66); PLT ESTIMATE ADEQUATE (ADEQUATE)
[2020-03-09 10:42] LABS: RBC,URINE 0 /HPF (0-2)
[2020-03-09 10:43] LABS: BACTERIA,URINE 0 /HPF (0-FEW); HYALINE CASTS, URINE FEW /HPF; SQUAMOUS EPITHELIAL CELL,UR MOD /LPF
[2020-03-09] MEDS ORDERED: ONDA4TAB7 PO (12:31)
--- NOTE | 2020-03-09 13:44 | EKG ---
[facility] [address] [place] [address] Test Date: 2020-03-09 Test Time: 07:58:12 Pat Name: NANCY GASTELUM Department: Room: Gender: F Cat Hooker: : 1965 Requested By: PRAVIN PROCTOR Order Number: [id number] Reading MD: Eliecer Akbar Measurements Intervals [place] Rate: 128 P: 22 SC: 100 QRS: 26 QRSD: 94 T: 68 QT: 324 QTc: 476 Interpretive Statements SINUS TACHYCARDIA LVH WITH REPOLARIZATION ABNORMALITY NONSPECIFIC ST-T WAVE CHANGES. Electronically Signed On 03-12-2020 16:08:32 CDT by Eliecer Akbar
== END 2020-03-09 12:51 | disposition home or self-care (01) ==
LOC: ER 07:49
DX: K52.9 Noninfective gastroenteritis and colitis, unspecified (principal); F17.200 Nicotine dependence, unspecified, uncomplicated; F10.20 Alcohol dependence, uncomplicated; Y90.9 Presence of alcohol in blood, level not specified; Z90.89 Acquired absence of other organs; Z90.710 Acquired absence of both cervix and uterus; Z90.49 Acquired absence of other specified parts of digestive tract; Z98.51 Tubal ligation status
CPT/HCPCS: 36415; 74176; 80053; 81001; 83690; 83735; 84484; 85007; 85025; 85610; 85730; 87086; 93005; 96361; 96374; 96375; 99285; J2270; J2765; J7030